=== PATIENT | female | born 1955 | race African-American/Black ===

== ENCOUNTER 2019-10-21 16:19 | Inpatient (IN) | payer OTHER ==
--- NOTE | 2019-10-21 16:47 | PDOC ---
History of Present Illness - General Chief Complaint: Weakness Stated Complaint: POSS STROKE Time Seen by Provider: 10/21/19 16:35 - History of Present Illness Initial Comments: HPI: 64yo F with PMH of HTN, anxiety, depression sent by her primary care physician for evaluation of dysarthria and abnormal mouth sensation. Patient reports facial numbness and slurred speech for about one minute on Friday. These symptoms went away on their own. Her family member believed that she was having a "mini stroke." On both Friday and Friday patient felt tingling around her mouth for about two minutes. Starting on Friday (yesterday), patient has had intermittent mouth "heaviness." As this sensation has persisted, she decided to come to the ED for further evaluation. Last known normal was 7am this morning. Denies recent fall or syncope. No history of stroke. Denies fevers, chills, chest pain, or shortness of breath. PCP: Dr. Bess ROS: Constitutional: no fever, no chills HEENT: no throat pain, no dysphagia Cardiovascular: no chest pain, no palpitations Respiratory: no cough, no shortness of breath Gastrointestinal: no abdominal pain, no nausea Genitourinary: no dysuria, no hematuria Musculoskeletal: no myalgia, no arthralgia Skin: no rash, no itching Neurologic: +dysarthria, +weakness Psych: no agitation, no anxiety PE: General: Awake, alert, and fully oriented, in no acute distress Head: No signs of trauma Eyes: EOMI, sclera anicteric ENT: Moist mucus membranes Neck: Normal ROM, supple Lungs: Lungs clear, Normal breath sounds Cardio: Regular rhythm, S1 and S2 present Abdomen: Soft, nontender. No guarding, no rebound, no masses Extremities: Normal range of motion, Distal pulses present SKIN: Warm, Dry, normal turgor Neurologic: Cranial nerves II through XII grossly intact. Dysarthric. Please see NIHSS ED Course/MDM: DDX including but not limited to CVA, ACS, anemia, metabolic derangement Labs, EKG CT Head NIHSS Not a TPA candidate as she is outside the window 10/21/19 16:47 CBC WBC 7.9 K/mm3 (4.0-10.0) 10/21/19 17:35 RBC 4.32 M/mm3 (3.60-5.2) 10/21/19 17:35 Hgb 12.6 GM/dL (10.7-15.3) 10/21/19 17:35 Hct 37.9 % (32.4-45.2) 10/21/19 17:35 MCV 87.8 fl (80-96) 10/21/19 17:35 MCH 29.1 pg (25.7-33.7) 10/21/19 17:35 MCHC 33.1 g/dl (32.0-36.0) 10/21/19 17:35 RDW 14.4 % (11.6-15.6) 10/21/19 17:35 Plt Count 413 K/MM3 (134-434) 10/21/19 17:35 MPV 8.3 fl (7.5-11.1) 10/21/19 17:35 Absolute Neuts (auto) 3.8 K/mm3 (1.5-8.0) 10/21/19 17:35 Neutrophils % 48.1 % (42.8-82.8) 10/21/19 17:35 Lymphocytes % 41.9 % (8-40) H 10/21/19 17:35 Monocytes % 6.8 % (3.8-10.2) 10/21/19 17:35 Eosinophils % 2.6 % (0-4.5) 10/21/19 17:35 Basophils % 0.6 % (0-2.0) 10/21/19 17:35 Nucleated RBC % 0 % (0-0) 10/21/19 17:35 No leukocytosis CMP Sodium 139 mmol/L (136-145) 10/21/19 17:35 Potassium 3.8 mmol/L (3.5-5.1) 10/21/19 17:35 Chloride 106 mmol/L (98-107) 10/21/19 17:35 Carbon Dioxide 27 mmol/L (21-32) 10/21/19 17:35 Anion Gap 6 MMOL/L (8-16) L 10/21/19 17:35 BUN 10.4 mg/dL (7-18) 10/21/19 17:35 Creatinine 0.9 mg/dL (0.55-1.3) 10/21/19 17:35 Est GFR (CKD-EPI)AfAm 79.42 10/21/19 17:35 Est GFR (CKD-EPI)NonAf 68.53 10/21/19 17:35 POC Glucometer 115 UNITS (80-120) 10/21/19 16:27 Random Glucose 95 mg/dL (74-106) 10/21/19 17:35 Calcium 9.4 mg/dL (8.5-10.1) 10/21/19 17:35 Total Bilirubin 0.2 mg/dL (0.2-1) 10/21/19 17:35 AST 10 U/L (15-37) L 10/21/19 17:35 ALT 15 U/L (13-61) 10/21/19 17:35 Alkaline Phosphatase 94 U/L (45-117) 10/21/19 17:35 Creatine Kinase 59 U/L (26-192) 10/21/19 17:35 Troponin I < 0.02 ng/ml (0.00-0.05) 10/21/19 17:35 Total Protein 8.1 g/dl (6.4-8.2) 10/21/19 17:35 Albumin 3.5 g/dl (3.4-5.0) 10/21/19 17:35 Triglycerides 127 mg/dL (0-150) 10/21/19 17:35 Cholesterol 221 mg/dL (50-200) H 10/21/19 17:35 Total LDL Cholesterol 138 mg/dL (5-100) H 10/21/19 17:35 HDL Cholesterol 50 mg/dL (40-60) 10/21/19 17:35 Electrolytes unremarkable Cr normal Tpn undetectable Cholesterol and LDL high EKG: rate 84, QTc 482, sinus Pending CT report 10/21/19 18:46 CT Head as read by radiology: " EXAM#: TYPE/EXAM: RESULT: [id number] CT/HEAD CT WITHOUT CONTRAST Cranial CT without contrast Clinical information: dysarthria, concern for stroke Multiplanar imaging was performed. Intravenous contrast was not administered. No intracranial hemorrhage is seen. There is no extra-axial fluid collection. No discrete infarct is identified within the limitations of CT. Atherosclerotic calcification is seen along the intracranial left vertebral artery. There is no obvious mass lesion on noncontrast imaging. The ventricles and cisterns appear unremarkable. No calvarial defect is noted. Impression: No CT evidence of acute intracranial pathology. Intracranial findings described on an MRI exam of 2018 cannot be definitely appreciated on CT. Please refer to the MRI report. Reported By: Sanchez Mckeon MD 10/21/19 185 " 10/21/19 19:[address] Torrez ASA recommended Patient to be admitted 10/21/19 19:28 CXR as read by radiology: " EXAM#: TYPE/EXAM: RESULT: [id number] RAD/CHEST X-RAY PORTABLE* Chest : Weakness. Single view of the chest reveals a large heart, normal aortic abnormal ludivina and clear well aerated lung menezes. There is a granuloma at the right base measuring 4.6 mm in greatest diameter. The angles are sharp. The bones and soft tissues are intact Impression : Large heart. No acute chest pathology. Right lower lung granuloma. Reported By : Jeffry Melton MD 10/21/192000 " Awaiting callback from hospitalist team 10/21/19 20:03 Dr. Membreno evaluated the patient. Symptoms may be attributed to tardive dyskinesia as patient is on several psych medications. Patient to still get MRI 10/21/19 20:[address] Refugio Broderick who accepted patient for admission under Dr. Vizcaino 10/21/19 20:16 tPA Exclusion checklist 3-4.5h - Time Elapsed Date last known well: 10/21/19 Time last known well: 07:00 Elaspsed time: Day(s) and 14 Hour(s) and 45 Minutes - Thrombolytic Therapy Candidate Is patient eligible for thrombolytic therapy: No - Ineligibility reason(s) Reasons No tPA given: Outside of window - delayed arrival NIH Stroke Scale - Last Known Well Date/Time & Onset Date Last Known Well: 10/21/19 Time Last Known Well: 07:00 - Initial Evaluation Level of consciousness: Alert Ask patient the month and their age: Answers both correctly Ask patient to open & close eyes; make fist and let go: Obeys both correctly Best gaze (horizontal eye movement): Normal Visual field testing: No visual field loss Facial paresis (Show teeth/raise eyebrows/close eyes tight): Normal symmetrical movement Motor Function: Left Arm: Normal Motor Function: Right Arm: Normal (extends arm 90 (or 45) degrees for 10 seconds without drift Motor Function: Left Leg: Normal (extends leg 30 degrees for 5 seconds without drift) Motor Function: Right Leg: Normal (extends leg 30 degrees for 5 seconds without drift) Limb Ataxia: No ataxia Sensory(Use pinprick test arms,legs,trunk,face/side to side): Normal Best language (Describe picture, name items, read sentences): No Aphasia Dysarthria (read several words): Mild to moderate slurring of words Extinction and Inattention: No abnormality - Total Score NIH Stroke Scale Score: 1 Past History - Past Medical History Allergies/Adverse Reactions: Allergies Allergy/AdvReac Type Severity Reaction Status Date / Time No Known Allergies Allergy Verified 10/21/19 16:33 Home Medications: Ambulatory Orders Amlodipine Besylate [Norvasc -] 10 mg PO DAILY 05/08/18 Aripiprazole [Abilify -] 20 mg PO DAILY 05/08/18 Bupropion HCl [Bupropion Xl] 150 mg PO DAILY 05/08/18 traZODone HCL [Trazodone HCl] 100 mg PO HS 05/08/18 Aripiprazole 20 mg PO DAILY 10/21/19 Benztropine Mesylate 2 mg PO DAILY 10/21/19 Mirtazapine [Remeron -] 45 mg PO HS 10/21/19 Anemia: No Asthma: No Cancer: No CVA: No COPD: Yes CHF: No Diabetes: No GI Disorders: No Disorders: No HTN: Yes (on meds) Hypercholesterolemia: No Liver Disease: No Seizures: No Thyroid Disease: No (nodule biopsy negative 2015) - Surgical History Abdominal Surgery: No Appendectomy: No Cardiac Surgery: No Cholecystectomy: No Lung Surgery: No Neurologic Surgery: No Orthopedic Surgery: No - Psycho Social/Smoking Cessation Hx Smoking History: Never smoked Have you smoked in the past 12 months: No Information on smoking cessation initiated: No Hx Alcohol Use: No Drug/Substance Use Hx: No Substance Use Type: Alcohol Hx Substance Use Treatment: Yes (rehab) *Physical Exam - Vital Signs Last Vital Signs Temp Pulse Resp BP Pulse Ox 97.2 F L 91 H 16 140/90 100 10/21/19 16:20 10/21/19 16:20 10/21/19 16:20 10/21/19 16:20 10/21/19 16:20 ED Treatment Course - LABORATORY CBC & Chemistry Diagram: 10/21/19 17:35 10/21/19 17:35 - ADDITIONAL ORDERS Additional order review: Laboratory Results 10/21/19 16:27 POC Glucometer 115 10/21/19 16:27 POC Glucometer 115 Discharge - Discharge Information Problems reviewed: Yes Clinical Impression/Diagnosis: Dysarthria Condition: Guarded - Admission Yes - Follow up/Referral - Patient Discharge Instructions - Post Discharge Activity
[2019-10-21] MEDS ORDERED: SODIUM CHLORIDE 1,000 ML IV SCH ×2 (17:30→22:00)
[2019-10-21 18:02] LABS: BASO % 0.6 % (0-2.0); EOS % 2.6 % (0-4.5); HEMATOCRIT 37.9 % (32.4-45.2); HEMOGLOBIN 12.6 GM/dL (10.7-15.3); LYMPH % 41.9 % (8-40); MCH 29.1 pg (25.7-33.7); MCHC 33.1 g/dl (32.0-36.0); MEAN CELL VOLUME 87.8 fl (80-96); MEAN PLT VOLUME 8.3 fl (7.5-11.1); MONO % 6.8 % (3.8-10.2); NEUT % 48.1 % (42.8-82.8); PLATELET COUNT 413 K/MM3 (134-434); RBC 4.32 M/mm3 (3.60-5.2); RDW 14.4 % (11.6-15.6); WHITE BLOOD COUNT 7.9 K/mm3 (4.0-10.0)
[2019-10-21 18:15] LABS: INR 1.01 (0.83-1.09); PROTHROMBIN TIME (PATIENT) 11.9 SEC (9.7-13.0)
[2019-10-21 18:18] LABS: PH,URINE 6.5 (5.0-8.0); URINE APPEARANCE CLEAR; URINE BILIRUBIN NEGATIVE (NEGATIVE); URINE COLOR YELLOW; URINE GLUCOSE (UA) NEGATIVE (NEGATIVE); URINE KETONE NEGATIVE (NEGATIVE); URINE LEUK ESTERASE NEGATIVE (NEGATIVE); URINE NITRITE NEGATIVE (NEGATIVE); URINE PROTEIN NEGATIVE (NEGATIVE)
[2019-10-21 18:35] LABS: ALBUMIN 3.5 g/dl (3.4-5.0); ALK PHOS 94 U/L (45-117); ANION GAP 6 MMOL/L (8-16); BILIRUBIN,TOTAL 0.2 mg/dL (0.2-1); BLOOD UREA NITROGEN 10.4 mg/dL (7-18); CALCIUM 9.4 mg/dL (8.5-10.1); CHLORIDE 106 mmol/L (98-107); CHOLESTEROL 221 mg/dL (50-200); CO2 27 mmol/L (21-32); CREATININE 0.9 mg/dL (0.55-1.3); GLUCOSE,RANDOM 95 mg/dL (74-106); HDL CHOLESTEROL 50 mg/dL (40-60); LDL CHOLESTEROL (ONLY SJRH) 138 mg/dL (5-100); POTASSIUM 3.8 mmol/L (3.5-5.1); SGOT/AST 10 U/L (15-37); SGPT/ALT 15 U/L (13-61); SODIUM 139 mmol/L (136-145); TOT PROT 8.1 g/dl (6.4-8.2); TRIGLYCERIDES 127 mg/dL (0-150)
--- NOTE | 2019-10-21 18:55 | PDOC ---
Attending Attestation - Resident Resident Name: Yvette Bland - ED Attending Attestation I have performed the following: I have examined & evaluated the patient, The case was reviewed & discussed with the resident, I agree w/resident's findings & plan, Exceptions are as noted - HPI HPI: 10/21/19 18:53 64 years old with stuttering symptoms of tongue tingling dysarthria questionable facial droop last week Currently asymptomatic - Physicial Exam PE: 10/21/19 18:53 Vitals: Triage Vital signs reviewed General Appearance: No acute distress, well nourished well developed, Head: Atraumatic, Eyes: Pupils equal reactive round, extraocular movement intact Neuro: AOX3; cranial Nerves 2-12 grossly intact, strength intact to all extremities, sensation intact to all extremities, gait normal Psych: Normal mood, normal affect okay - Medical Decision Making 10/21/19 18:54 Stuttering symptoms currently asymptomatic NIHSS score [address] with no acute bleed Interpreted by me Full dose aspirin given We will admit to medicine for further management.
[2019-10-21] MEDS ORDERED: ASPIRIN 81 MG CHEWABLE TABLETS PO ONE (19:30)
--- NOTE | 2019-10-21 19:58 | CON.NEURO ---
Consult Consult Specialty:: Haseeb Referred by:: ER - History of Present Illness History of Present Illness: 64 years old woman with PMH CAD OA HTN Prior TIA came in with possible another CVA Patient with heavy tongue an difficulty expressing herslef No headache Had MRI in Apr 2019 by me - History Source History Provided By: Patient Limitations to Obtaining History: No Limitations - Alcohol/Substance Use Hx Alcohol Use: No - Smoking History Smoking history: Never smoked Have you smoked in the past 12 months: No Home Medications - Allergies Allergies/Adverse Reactions: Allergies Allergy/AdvReac Type Severity Reaction Status Date / Time No Known Allergies Allergy Verified 10/21/19 16:33 - Home Medications Home Medications: Ambulatory Orders Amlodipine Besylate [Norvasc -] 10 mg PO DAILY 05/08/18 Aripiprazole [Abilify -] 20 mg PO DAILY 05/08/18 Bupropion HCl [Bupropion Xl] 150 mg PO DAILY 05/08/18 traZODone HCL [Trazodone HCl] 100 mg PO HS 05/08/18 Aripiprazole 20 mg PO DAILY 10/21/19 Benztropine Mesylate 2 mg PO DAILY 10/21/19 Mirtazapine [Remeron -] 45 mg PO HS 10/21/19 Family Medical History Family History: Unremarkable Review of Systems - Review of Systems Constitutional: reports: No Symptoms Eyes: reports: No Symptoms HENT: reports: No Symptoms Neurological: reports: Headache, Incoordination, Numbness, Parasthesia Physical Exam-Neuro Vital Signs: Vital Signs Temperature 97.2 F L 10/21/19 16:20 Pulse Rate 91 H 10/21/19 16:20 Respiratory Rate 16 10/21/19 16:20 Blood Pressure 140/90 10/21/19 16:20 O2 Sat by Pulse Oximetry (%) 100 10/21/19 16:20 Constitutional: Yes: Well Nourished Neck: Yes: WNL Cardiovascular: Yes: WNL Labs: CBC, BMP 10/21/19 17:35 10/21/19 17:35 INR, PTT INR 1.01 (0.83-1.09) 10/21/19 17:35 - Neuro Exam Level Of Consciousness: Yes: Oriented to Person, Oriented to Place, Oriented to Time Eyes: Yes: PERRLA Speech: WNL Dominant Hand: Right Cranial Nerves II-XII Intact: Yes Gag: Present DTR's: 1+ Left Bicep, 1+ Right Bicep, 1+ Left Tricep, 1+ Right Tricep, 1+ Left Brachioradialis, 1+ Right Brachioradialis, 1+ Left Achilles, 1+ Right Achilles Response to light touch: Normal Response to pain prick: Normal Response to temperature: Normal Motor Strength: 3/5: Left Arm, Right Arm, Left Leg, Right Leg Gait: Deferred NIH Stroke Scale - Last Known Well Date/Time & Onset Date Last Known Well: 10/18/19 - Initial Evaluation Level of consciousness: Alert Ask patient the month and their age: Answers both correctly Ask patient to open & close eyes; make fist and let go: Obeys both correctly Best gaze (horizontal eye movement): Normal Visual field testing: No visual field loss Facial paresis (Show teeth/raise eyebrows/close eyes tight): Normal symmetrical movement Motor Function: Left Arm: Normal Motor Function: Right Arm: Normal (extends arm 90 (or 45) degrees for 10 seconds without drift Motor Function: Left Leg: Normal (extends leg 30 degrees for 5 seconds without drift) Motor Function: Right Leg: Normal (extends leg 30 degrees for 5 seconds without drift) Limb Ataxia: No ataxia Sensory(Use pinprick test arms,legs,trunk,face/side to side): Normal Best language (Describe picture, name items, read sentences): No Aphasia Dysarthria (read several words): Normal articulation Extinction and Inattention: No abnormality - Total Score NIH Stroke Scale Score: 0 Imaging - Results Cat Scan: Image Reviewed MRI: Image Reviewed Problem List - Problems (1) Dysarthria Code(s): R47.1 - DYSARTHRIA AND ANARTHRIA Assessment/Plan Doubt any CVA relate devent Anxiety Speech and swallow assess Baby ASA Notes from my office MRI brain with no Daryl Ashleigh Membreno MD Neurology
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
[2019-10-21] MEDS: traZODone HCL 100 MG TABLET (FP) PO SCH (23:16)
[2019-10-21] MEDS: HEPARIN NA (PORCINE) 5,000 UNITS/ML 1ML VIAL SQ SCH (23:16)
[2019-10-21] MEDS: MIRTAZAPINE 30 MG TABLET (FP) PO SCH (23:16)
--- NOTE | 2019-10-22 02:22 | PN ---
Teaching Attending Note Name of Resident: Tanmay Perez ATTENDING PHYSICIAN STATEMENT I saw and evaluated the patient. I reviewed the resident's note and discussed the case with the resident. I agree with the resident's findings and plan as documented. SUBJECTIVE: 64-year-old woman with hypertension, anxiety, depression sent by her PCP for evaluation of dysarthria. Reports facial numbness and slurred speech for about 1 minute on this past Friday however symptoms resolved shortly afterward. Patient has had intermittent mouth heaviness. Denied significant headaches no recent fall or syncope. Dr. Aguilera of neurology has evaluated patient already. OBJECTIVE: Last Vital Signs Temp Pulse Resp BP Pulse Ox 98.3 F 85 18 125/85 97 10/22/19 02:00 10/22/19 02:00 10/22/19 02:10/22/19 02:10/21/19 20:38 GENERAL: Well developed, well nourished. Awake and alert. No acute distress. HEENT: Normocephalic, atraumatic. PERRLA, EOMI. No conjunctival pallor. Sclera are non- icteric. Moist mucous membranes. Oropharynx is clear. NECK: Supple. Full ROM. No JVD. Carotid pulses 2+ and symmetric, without bruits. No thyromegaly. No lymphadenopathy. CARDIOVASCULAR: Regular rate and rhythm. No murmurs, rubs, or gallops. Distal pulses are 2+ and symmetric. PULMONARY: No evidence of respiratory distress. Lungs clear to auscultation bilaterally. No wheezing, rales or rhonchi. ABDOMINAL: Soft. Non-tender. Non-distended. No rebound or guarding. No organomegaly. Normoactive bowel sounds. MUSCULOSKELETAL Normal range of motion at all joints. No bony deformities or tenderness. No CVA tenderness. EXTREMITIES: No cyanosis. No clubbing. No edema. No calf tenderness. Neuro - dysarthria SKIN: Warm and dry. Normal capillary refill. No rashes. No jaundice. PSYCHIATRIC: Cooperative. Good eye contact. Appropriate mood and affect. Abnormal Lab Results 10/21/19 10/21/19 17:35 17:35 Lymphocytes % 41.9 H Anion Gap 6 L AST 10 L Cholesterol 221 H Total LDL Cholesterol 138 H Imaging studies reviewed ASSESSMENT AND PLAN: 64-year-old woman with dysarthria concerning for TIA, CVA should be ruled out. Admit to telemetry Carotid Doppler, transthoracic echo Bedrest and fall precautions, PT evaluation N.p.o. Speech and swallow eval Statin Aspirin Neurology follow-up Brain MRI #Psych issues Continue with home dose medications Remeron, Abilify, trazodone, bupropion, benztropine Psych eval for possible psych medication adjustments as she is noted to be on multiple medications #DVT prophylaxisheparin subcutaneously
[2019-10-22 03:15] VITALS: BMI 30.2
[2019-10-22] MEDS: HEPARIN NA (PORCINE) 5,000 UNITS/ML 1ML VIAL SQ SCH ×3 (05:09→21:29)
[2019-10-22 07:23] LABS: BASO % 1.3 % (0-2.0); EOS % 4.6 % (0-4.5); HEMATOCRIT 39.3 % (32.4-45.2); HEMOGLOBIN 12.9 GM/dL (10.7-15.3); LYMPH % 44.3 % (8-40); MCH 28.6 pg (25.7-33.7); MCHC 32.7 g/dl (32.0-36.0); MEAN CELL VOLUME 87.5 fl (80-96); MEAN PLT VOLUME 8.4 fl (7.5-11.1); MONO % 7.3 % (3.8-10.2); NEUT % 42.5 % (42.8-82.8); PLATELET COUNT 404 K/MM3 (134-434); RDW 14.8 % (11.6-15.6); WHITE BLOOD COUNT 6.2 K/mm3 (4.0-10.0)
[2019-10-22 07:56] LABS: ALBUMIN 3.4 g/dl (3.4-5.0); BILIRUBIN,TOTAL 0.4 mg/dL (0.2-1); BLOOD UREA NITROGEN 8.6 mg/dL (7-18); CALCIUM 8.9 mg/dL (8.5-10.1); CREATININE 0.7 mg/dL (0.55-1.3); MAGNESIUM 2.3 mg/dL (1.8-2.4); PHOSPHOROUS 4.2 mg/dL (2.5-4.9); POTASSIUM 3.8 mmol/L (3.5-5.1); TOT PROT 7.6 g/dl (6.4-8.2)
[2019-10-22] MEDS ORDERED: ARIPiprazole 20 MG TABLET PO SCH (10:00)
[2019-10-22] MEDS: amLODIPine BESYLATE 10 MG TABLET (FP) PO SCH (10:32)
[2019-10-22] MEDS: ARIPiprazole 20 MG TABLET PO SCH (10:32)
--- NOTE | 2019-10-22 10:47 | CONSULT ---
Admitting History and Physical - Past Medical History ...: No - Smoking History Smoking history: Never smoked Have you smoked in the past 12 months: No Aproximately how many cigarettes per day: 5 - Alcohol/Substance Use Hx Alcohol Use: No History - Admission Reason For Visit: DYSARTHRIA - Hearing Hearing: Normal Speech Evaluation - Communication Primary Language: KOREAN Communication: Yes: Within Normal Limits, Dysarthria (mild) Oral Expression Ability: Yes: No Impairment - Speech Production Dysarthria: Yes: Flaccid Apraxia: No Able to Make Needs Known: Yes: WNL Intelligibility: Yes: WNL - Speech Characteristics Voice Loudness: Normal Voice Pitch: Yes: Normal Voice Phonatory-based Quality: Yes: Normal Speech Pattern: Normal Nasal Resonance: Normal Articulation: Yes: Precise Dysfluency: Yes: Tonic Rate of Speech: Intact Voice Comment: Vocal quality is functional for the environment with speech parameters WNL - Language/Auditory Comprehension Follows: Yes: 1 Stage Simple Commands (WFL), 2 Stage Simple Commands (WFL) Observation: Able to respond to yes/no queries: Yes, Yes/No Confusion: No, Comprehends Conversational Speech: Yes, Benefits from Slow Speech: No, Benefits from Repetiton: No, Benefits from Increased Volume of Speech: No - Language/Verbal Expression Able to Respond to Simple Queries: Yes: WNL Able to Communicate Wants and Needs: Yes: WNL Functional Communication Status: Yes: WNL Aware of Errors: Yes Attempts to Correct Errors: Yes Use of Gestures: No Written Expression: not examined Oral Expression: WFL Reading Comprehension: not examined Calculations: not examined - Memory/Perception hairspring inspector Memory: Yes: WNL Short Term Memory: Yes: WNL - Swallow Evaluation/Bedside Assessment Current Nutritional Intake: Regular (sodium controlled), Soft, Thin Liquids Oral Secretions: Yes: WFL Tracheostomy Present: No Patient on Ventilator: No Dentition: Yes: Dental Appliance Upper, Dental Appliance Lower, Dental Fit Adequate Facial Symmetry at Rest: Symmetrical Facial Symmetry on Retraction: Symmetrical Facial Movement: Controlled Sensation: Normal Facial Comment: Oral and facial features are within functional limits for speech and swallo Jaw Position: Closed at Rest Against Resistance Opening: Normal Against Resistance Closing: Normal Pucker Lips: Normal Smile: Normal Lips, Comment: within functional limits for speech and swallowing purposes. Lingual Movement: Normal Lingual Speed of Movement: Normal Lingual Movement Strgth Against Opposition: Normal Lingual Movement Characteristics: Normal Lingual Comment: within functional limits for speech and swallowing purposes. Soft Palate Description: Normal Color Hard Palate Description: Normal Color Gag Reflex: Strong Velopharyngeal Movement: Normal Laryngeal Elevation: WFL Laryngeal Movement: Able to Palpate Needs Assistance: No Rate of Intake: WFL Bolus Size: WFL Labial Seal: WFL Chewing: WFL Oral Prep Time: WFL A-P Transit: WFL Pocketing: None Timing of Swallow: WFL Coughing/Throat Clear: No Change in Voice: No Other Findings/Remarks: 64 yo female seen at bedside for swallow eval to r/o dysphagia and functional speech. Pt presents as A&Ox3, verbal and cooperative. CC: episodic facial numbness with slurred speech (resolving). PMX includes: CAD, HTN, TIA, schizophrenia, depression and right lung granuloma. Speech is mildly slurred secondary to dysarthria but pt reports that it is "much better than yesterday." Pt given PO trials of pureed, regular cut to bite sized pieces with total assistance revealed, adequate bolus formation and A P transport with a timely pharyngeal swallow (1-2 second average). No change in voicing or respiration after the swallow. Thin liquid trials via cup and straw were unremarkable for dysphagia and / or aspiration at this time. Recommendations - Speech Evaluation, Impression/Plan Impression: The oral and pharyngeal swallow is adequate for po intake of regular solids (sodium controlled) and thin liquids. Labial containment, mastication, bolus transport, and initiation of swallow were WNL. No coughing or changes in voicing to suggest penetration / aspiration at bedside at this time. Speech is resolving with improving facial numbness. Language is WNL at this time. Tactical/Mobile Watch Officer Goals: Tolerate the least restrictive solid and liquid consistencies without s/s of penetration / aspiration. Improve speech intelligibility. Short Term Goals: Improve speech intelligibility. Recommended Frequency for Therapy: Follow Up PRN - Dysphagia Impressions/Plan Swallowing Skills: WFL Dysphagia Impressions: Minimal Impairment *Silent aspiration: cannot be R/O at bedside Dysphagia Treatment Plan: Small Bites, Safe Rate, OOB for meals, OOB for 1 h. after meals Dysphagia Evaluation Summary: Continue po intake of NA controlled regular solids with thin liquids at tolerated. Observe standard aspiration precautions. Provide oral care before and after meals including dental appliance tp and bottom. Medication can be given whole with water. Results given verbally to charge attendant and PCP via chart. EQUINE DENTIST to follow up for diet and improving speech as needed. Recommendations: Neuro Consult (to r/o dysfunction secondary to episodic numbness) - Recommendations Diet Consistency: Regular Medication Administration: Whole with water Liquids: Thin Liquids
--- NOTE | 2019-10-22 11:02 | ECHO ---
Name: JUVENTINO SUN Exam:Adult Echocardiogram Study Date: 10/22/2019 08:39 AM Age: 64 yrs Reason For Study: questionable TIA Height: 67 in Weight: 190 lb BSA: 2.0 m2 MMode/2D Measurements & Calculations IVSd: 1.0 cm Ao root diam: 3.0 cm LVIDd: 4.2 cm LA dimension: 3.4 cm LVIDs: 2.9 cm LVPWd: 1.3 cm LVPWs: 1.7 cm EDV(Teich): 77.4 ml ESV(Teich): 31.2 ml LVOT diam: 2.1 cm LVLd ap4: 7.9 cm EDV(MOD-sp4): 90.7 ml LVLs ap4: 7.0 cm ESV(MOD-sp4): 40.0 ml SV(MOD-sp4): 50.7 ml TAPSE: 2.2 cm RV S Alonzo: 12.6 cm/sec Doppler Measurements & Calculations MV E max alonzo: 54.3 cm/sec Ao V2 max: 119.8 cm/sec MV A max alozno: 92.2 cm/sec Ao max P.8 mmHg MV E/A: 0.59 MICHELLE(V,D): 3.0 cm2 MV dec time: 0.13 sec LV V1 max P.5 mmHg TR max alonzo: 233.7 cm/sec LV V1 max: 106.2 cm/sec TR max P.8 mmHg PA V2 max: 78.0 cm/sec Med Peak E' Alonzo: 5.0 cm/sec PA max P.4 mmHg Med E/e': 10.9 Lat Peak E' Alonzo: 5.9 cm/sec Lat E/e': 9.2 Left Ventricle Left ventricular systolic function is borderline reduced. Ejection Fraction = 50%. The transmitral sp ectral Doppler flow pattern is suggestive of impaired LV relaxation. Septal motion is consistent with conduc tion abnormality. Right Ventricle The right ventricle is normal in size and function. Atria The left atrium is mildly dilated. Right atrial size is normal. The interatrial septum is not well se en. Mitral Valve The mitral valve is normal in structure and function. There is no mitral valve stenosis. There is mil d mitral regurgitation. Tricuspid Valve The tricuspid valve is normal in structure and function. There is mild tricuspid regurgitation. Aortic Valve The aortic valve opens well. No hemodynamically significant valvular aortic stenosis. No aortic regur gitation is present. Pulmonic Valve The pulmonic valve is not well seen, but is grossly normal. There is no pulmonic valvular stenosis. Great Vessels The aortic root is normal size. Pericardium/Pleura There is no pericardial effusion. Interpretation Summary Septal motion is consistent with conduction abnormality. Left ventricular systolic function is borderline reduced. Ejection Fraction = 50%. The transmitral spectral Doppler flow pattern is suggestive of impaired LV relaxation. The left atrium is mildly dilated. There is mild mitral regurgitation. There is mild tricuspid regurgitation. There is no pericardial effusion. MD Mathews *Олег 10/22/2019 11:01 AM
[2019-10-22] MEDS: ASPIRIN 81 MG CHEWABLE TABLETS PO SCH (11:40)
--- NOTE | 2019-10-22 12:57 | CON.PULM ---
Consult Consult Specialty:: PULM/CCM Referred by:: Hospitalist Reason for Consultation:: abnormal CXR - History of Present Illness History of Present Illness: 64 F, 1/2 PPD long time smoker, CAD, HTN, TIA, schizophrenia, and depression. Admitted via the ER due to numbness and tingling in her lips, slurred speech, and blurred vision since Friday morning. Has not been taking her meds except for Trazodone for her insomnia. CXR: 4.[address] Chest: most recent was 2017: multiple non-calcified subcentimeter nodules, largest being 5mm in the DYAN. No hemoptysis or night sweats. There is no history that would be consistent with OSAS. No travel history or sick contacts. - History Source History Provided By: Patient Limitations to Obtaining History: No Limitations - Past Medical History Pulmonary: Yes: Bronchitis. No: Asthma, Cancer, COPD, O2 Dependent, Pneumonia, Previously Intubated, Pulmonary Embolus, Pulmonary Fibrosis, Sleep Apnea ...: No - Alcohol/Substance Use Hx Alcohol Use: No - Smoking History Smoking history: Never smoked Have you smoked in the past 12 months: No Aproximately how many cigarettes per day: 5 Home Medications - Allergies Allergies/Adverse Reactions: Allergies Allergy/AdvReac Type Severity Reaction Status Date / Time No Known Allergies Allergy Verified 10/21/19 16:33 - Home Medications Home Medications: Ambulatory Orders Amlodipine Besylate [Norvasc -] 10 mg PO DAILY 05/08/18 Aripiprazole [Abilify -] 20 mg PO DAILY 05/08/18 Bupropion HCl [Bupropion Xl] 150 mg PO DAILY 05/08/18 traZODone HCL [Trazodone HCl] 100 mg PO HS 05/08/18 Aripiprazole 20 mg PO DAILY 10/21/19 Benztropine Mesylate 2 mg PO DAILY 10/21/19 Mirtazapine [Remeron -] 45 mg PO HS 10/21/19 Review of Systems - Review of Systems Constitutional: reports: Malaise. denies: Chills, Fever, Night Sweats Eyes: reports: No Symptoms HENT: reports: No Symptoms Neck: reports: No Symptoms Cardiovascular: denies: Chest Pain, Edema, Palpitations, Shortness of Breath Respiratory: reports: Cough. denies: Hemoptysis, Snoring, SOB, SOB on Exertion , Wheezing Gastrointestinal: reports: No Symptoms Genitourinary: reports: No Symptoms Breasts: reports: No Symptoms Reported Musculoskeletal: reports: No Symptoms Integumentary: reports: No Symptoms Neurological: reports: Change in Speech, Numbness, Parasthesia. denies: Seizure Endocrine: reports: No Symptoms Hematology/Lymphatic: reports: No Symptoms Psychiatric: reports: No Symptoms Physical Exam Vital Sings: Vital Signs Temperature 98.1 F 10/22/19 10:00 Pulse Rate 83 10/22/19 10:00 Respiratory Rate 18 10/22/19 10:00 Blood Pressure 144/95 10/22/19 10:00 O2 Sat by Pulse Oximetry (%) 97 10/21/19 21:54 Constitutional: Yes: No Distress, Calm Eyes: Yes: Conjunctiva Clear, EOM Intact HENT: Yes: Atraumatic, Normocephalic Neck: Yes: Supple, Trachea Midline Cardiovascular: Yes: Regular Rate and Rhythm Respiratory: Yes: CTA Bilaterally, Diminished. No: Accessory Muscle Use, Rales , Rhonchi, SOB, SOB on Exertion, Stridor, Tachypnea, Wheezes ...Inspection: Yes: WNL ...Clubbing: No Gastrointestinal: Yes: Normal Bowel Sounds, Soft Renal/: Yes: WNL Musculoskeletal: Yes: WNL Extremities: Yes: WNL Edema: No Peripheral Pulses WNL: Yes Integumentary: Yes: WNL Neurological: Yes: WNL, Alert, Oriented ...Motor Strength: WNL Psychiatric: Yes: WNL, Alert, Oriented Labs: CBC, BMP 10/22/19 06:20 10/22/19 06:20 Imaging - Results Chest X-ray: Report Reviewed, Image Reviewed Cat Scan: Report Reviewed, Image Reviewed Problem List - Problems (1) Lung nodule < 6cm on CT Code(s): R91.1 - SOLITARY PULMONARY NODULE (2) Dysarthria Code(s): R47.1 - DYSARTHRIA AND ANARTHRIA (3) Bipolar disease, chronic Code(s): F31.9 - BIPOLAR DISORDER, UNSPECIFIED (4) Chronic radicular low back pain Code(s): M54.16 - RADICULOPATHY, LUMBAR REGION; G89.29 - OTHER CHRONIC PAIN (5) Granulomatous lung disease Code(s): J84.10 - PULMONARY FIBROSIS, UNSPECIFIED (6) HTN (hypertension) Code(s): I10 - ESSENTIAL (PRIMARY) HYPERTENSION (7) Nicotine dependence Code(s): F17.200 - NICOTINE DEPENDENCE, UNSPECIFIED, UNCOMPLICATED Assessment/Plan PLAN: CT chest No smoking counseled O2 as needed No need for systemic steroids Neuro work up ongoing VTE prophylaxis Will follow Thank you. Dr Hein
--- NOTE | 2019-10-22 15:40 | EKG ---
Test Reason : Blood Pressure : / mmHG Vent. Rate : 084 BPM Atrial Rate : 084 BPM P-R Int : 128 ms QRS Dur : 082 ms QT Int : 408 ms P-R-T Axes : 059 038 015 degrees QTc Int : 482 ms POOR DATA QUALITY, INTERPRETATION MAY BE ADVERSELY AFFECTED SINUS RHYTHM WITH PREMATURE SUPRAVENTRICULAR COMPLEXES POSSIBLE LEFT ATRIAL ENLARGEMENT NONSPECIFIC T WAVE ABNORMALITY PROLONGED QT ABNORMAL ECG NO PREVIOUS ECGS AVAILABLE Confirmed by MARY ERAZO MD ([id number]) on 10/22/2019 3:39:37 PM Referred By: Confirmed By:MARY ERAZO MD
--- NOTE | 2019-10-22 17:09 | PN ---
Physical Exam: SUBJECTIVE: Patient seen and examined at bedside. She was admitted overnight for possible CVA. This AM she states that she is well and her presenting c/o mouth/lip numbness has resolved. She does endorse some change in her voice. Otherwise she has no HIGGINS, vision change, numbness/tingling. She has never experienced this before; she denies h/o TIA. The sensation symptoms have been on /off but the speech change/slurring has been constant since Friday10/17/2019. ROS neg. She denies recent wt loss, night sweats, fevers/chills. She has not traveled, had sick contacts, used recreational drugs, tried new foods/ supplements/herbs. OBJECTIVE: Vital Signs Temp Pulse Resp BP Pulse Ox 98.4 F 86 20 127/86 98 10/22/19 14:00 10/22/19 14:00 10/22/19 14:00 10/22/19 14:10/22/19 09:00 GENERAL: AOx3, in no acute distress, pleasant/polite HEAD: NCAT EYES: SHITAL, EOMI, conjunctiva clear. ENT: Ears normal, nares patent, oropharynx clear without exudates. Moist mucous membranes. NECK: Normal range of motion, supple without lymphadenopathy, JVD, or masses. LUNGS: CTAB. No wheezes, and no crackles. No accessory muscle use. HEART: RRR s1 s2 ABDOMEN: Obese, soft, BS present in all 4 quadrants, non-distended, no JVD, MUSCULOSKELETAL: No bony deformities or tenderness. No CVA tenderness. UPPER EXTREMITIES: 2+ pulses, warm, well-perfused. No cyanosis. No clubbing. No peripheral edema. LOWER EXTREMITIES: 2+ pulses, warm, well-perfused. No calf tenderness. No peripheral edema. NEUROLOGICAL: Cranial nerve 7 failure, LEFT sided facial droop. All other CN intact. Unclear if speech is pt's idiolect or genuine slurring. Gait intact with appropriate strike and swing phase and appropriate circumambulation. FTN intact. No dysdiadochokinesia. Strength 5/5 thorughout. Hand pit crew support worker 5/5. PAtellar and brachial reflex 2+ BL. Babinski NEG. PSYCHIATRIC: Cooperative. Good eye contact. Appropriate mood and affect. SKIN: Warm, dry, normal turgor, no rashes or lesions noted, normal capillary refill. Laboratory Results - last 24 hr 10/21/19 10/21/19 10/21/19 16:27 17:35 17:35 WBC 7.9 RBC 4.32 Hgb 12.6 Hct 37.9 MCV 87.8 MCH 29.1 MCHC 33.1 RDW 14.4 Plt Count 413 MPV 8.3 Absolute Neuts (auto) 3.8 Neutrophils % 48.1 Lymphocytes % 41.9 H Monocytes % 6.8 Eosinophils % 2.6 Basophils % 0.6 Nucleated RBC % 0 PT with INR 11.90 INR 1.01 PTT (Actin FS) 33.0 Sodium Potassium Chloride Carbon Dioxide Anion Gap BUN Creatinine Est GFR (CKD-EPI)AfAm Est GFR (CKD-EPI)NonAf POC Glucometer 115 Random Glucose Calcium Phosphorus Magnesium Total Bilirubin AST ALT Alkaline Phosphatase Creatine Kinase Troponin I Total Protein Albumin Triglycerides Cholesterol Total LDL Cholesterol HDL Cholesterol Urine Color Urine Appearance Urine pH Ur Specific [place] Urine Protein Urine Glucose (UA) Urine Ketones Urine Blood Urine Nitrite Urine Bilirubin Urine Urobilinogen Ur Leukocyte Esterase Blood Type Antibody Screen 10/21/19 10/21/19 10/21/19 17:35 17:35 18:00 WBC RBC Hgb Hct MCV MCH MCHC RDW Plt Count MPV Absolute Neuts (auto) Neutrophils % Lymphocytes % Monocytes % Eosinophils % Basophils % Nucleated RBC % PT with INR INR PTT (Actin FS) Sodium 139 Potassium 3.8 Chloride 106 Carbon Dioxide 27 Anion Gap 6 L BUN 10.4 Creatinine 0.9 Est GFR (CKD-EPI)AfAm 79.42 Est GFR (CKD-EPI)NonAf 68.53 POC Glucometer Random Glucose 95 Calcium 9.4 Phosphorus Magnesium Total Bilirubin 0.2 AST 10 L ALT 15 Alkaline Phosphatase 94 Creatine Kinase 59 Troponin I < 0.02 Total Protein 8.1 Albumin 3.5 Triglycerides 127 Cholesterol 221 H Total LDL Cholesterol 138 H HDL Cholesterol 50 Urine Color Yellow Urine Appearance Clear Urine pH 6.5 Ur Specific [place] 1.023 Urine Protein Negative Urine Glucose (UA) Negative Urine Ketones Negative Urine Blood Negative Urine Nitrite Negative Urine Bilirubin Negative Urine Urobilinogen 1.0 Ur Leukocyte Esterase Negative Blood Type A POSITIVE Antibody Screen Negative 10/22/19 10/22/19 06:20 06:20 WBC 6.2 RBC 4.50 Hgb 12.9 Hct 39.3 MCV 87.5 MCH 28.6 MCHC 32.7 RDW 14.8 Plt Count 404 MPV 8.4 Absolute Neuts (auto) 2.6 Neutrophils % 42.5 L Lymphocytes % 44.3 H Monocytes % 7.3 Eosinophils % 4.6 H Basophils % 1.3 Nucleated RBC % 0 PT with INR INR PTT (Actin FS) Sodium 140 Potassium 3.8 Chloride 108 H Carbon Dioxide 26 Anion Gap 6 L BUN 8.6 Creatinine 0.7 Est GFR (CKD-EPI)AfAm 107.62 Est GFR (CKD-EPI)NonAf 92.86 POC Glucometer Random Glucose 96 Calcium 8.9 Phosphorus 4.2 Magnesium 2.3 Total Bilirubin 0.4 AST 10 L ALT 12 L Alkaline Phosphatase 91 Creatine Kinase Troponin I Total Protein 7.6 Albumin 3.4 Triglycerides Cholesterol Total LDL Cholesterol HDL Cholesterol Urine Color Urine Appearance Urine pH Ur Specific [place] Urine Protein Urine Glucose (UA) Urine Ketones Urine Blood Urine Nitrite Urine Bilirubin Urine Urobilinogen Ur Leukocyte Esterase Blood Type Antibody Screen Active Medications Amlodipine Besylate (Norvasc -) 10 mg PO DAILY [facility] Last Admin: 10/22/19 10:32 Dose: 10 mg Aripiprazole (Abilify) 20 mg PO DAILY [facility] Last Admin: 10/22/19 10:32 Dose: 20 mg Aspirin (Asa -) 81 mg PO DAILY [facility] Last Admin: 10/22/19 11:40 Dose: 81 mg Atorvastatin Calcium (Lipitor -) 80 mg PO [facility] Bupropion HCl (Wellbutrin Xl -) 150 mg PO DAILY [facility] Last Admin: 10/22/19 10:32 Dose: 150 mg Heparin Sodium (Porcine) (Heparin -) 5,000 unit SQ TID [facility] Last Admin: 10/22/19 13:53 Dose: 5,000 unit Mirtazapine (Remeron -) 45 mg PO [facility] Last Admin: 10/21/19 23:16 Dose: 45 mg Trazodone HCl (Desyrel -) 100 mg PO [facility] Last Admin: 10/21/19 23:16 Dose: 100 mg ASSESSMENT/PLAN: 64 y/o female PMH HTN, CAD, TIA, schizophrenia, and major depression c/o 5 days of on/off juan-oral numbness/tingling and constant speech slurring, admitted for care of possible CVA. # Acute CVA - Symptoms currently abating - MRI: acute/subacute lacunar infarct LEFT frontal high convexity - S/p full dose asa in ED, cont with 81 mg po qd - Atorvastatin 80 nmg po qd - Fall/sz precautions - HOB elevated - Speech/swallow - POSITIVE carotid dopler; BL vessel occlusion. This possible contributed to current presentation # RIGHT lung lesion - CXR finding - Must compare to previous imaging - Asymptomatic - Consult pulm. # Major depression - Bupropion 150 mg po qd - Mirtazepine 45 mg po hs # Schizophrenia - Aripiprazole 20 mg po qd # HTN - Currently normotensive - No home regimen per med rec. - Chart notes pt previously on Norvasc 10 mg po qf - Prolonged qtc # HLD - Atorvastatin 80 mg po qd # F/E/N - PO - Cont. to monitor - NPO till bedside speech/swallow # DVT prophylaxis - Heparin SQ # Disposition - Med/surg Robbi Power MD Visit type - Emergency Visit Emergency Visit: No - New Patient This patient is new to me today: No - Critical Care Critical Care patient: No ATTENDING PHYSICIAN STATEMENT I saw and evaluated the patient. I reviewed the resident's note and discussed the case with the resident. I agree with the resident's findings and plan as documented. SUBJECTIVE: OBJECTIVE: ASSESSMENT AND PLAN:
--- NOTE | 2019-10-22 17:37 | PN ---
Teaching Attending Note Name of Resident: Robbi Power ATTENDING PHYSICIAN STATEMENT I saw and evaluated the patient. I reviewed the resident's note and discussed the case with the resident. I agree with the resident's findings and plan as documented. SUBJECTIVE: seen at 10 am No fever or chills. she feels her speech is normal. daughter at bedside concurs. No weakness, numbness or tingling at time of evaluation . No dysphagea. OBJECTIVE: NAD. awake ,alert , and cooperative CV: RRR. Lungs: CTAB Ext: No edema or erythema on upper or lower extremities. Neuro: EOMI, round equal pupils, reactive to light . tongue and uvula at mid line . nl facial sensation . no facial droop. strength 5/5 in upper and lower extremities proximally and distally. sensation to light touch is nL. nose to finger NL. Nl speech ASSESSMENT AND PLAN: 64 y/o lady with h/o hypertension, anxiety,schizophrenia , depression , prior TIA who presented with facial numbness and slurred speech . 1- Dysarthria and facial numbness: MRI with acute L frontal infarct. lesions in periventricular area. - speech is normal and numbness has resolved - cont statin - asa - tele to r/o A fib - US with decreased flow in vertebral arteries and internal carotids. will get CTA to clarify this finding - need to contact neuro to compare MRI to the one done as out pt - periventricular lesions are to be investigated by neuro . ? MS - speech eval noted. 2- nicotine dependence. cont Wellbutrin . counseled 3- granuloma in lung seen on xray . -CT of chest ordered - f/u with pulm 4- schizophrenia and depression : - cont abilify, trazodone, benztropin and remeron DVT Px : heparin PT
[2019-10-22] MEDS: BENZTROPINE MESYLATE 2 MG TABLET PO SCH (21:28)
[2019-10-22] MEDS: MIRTAZAPINE 30 MG TABLET (FP) PO SCH (21:29)
[2019-10-22] MEDS: traZODone HCL 100 MG TABLET (FP) PO SCH (21:29)
[2019-10-22] MEDS ORDERED: ATORVASTATIN CA 20 MG TABLET (FP) PO SCH ×2 (22:00)
[2019-10-23] MEDS: HEPARIN NA (PORCINE) 5,000 UNITS/ML 1ML VIAL SQ SCH ×2 (05:44→13:49)
[2019-10-23 06:05] VITALS: PULSE 80
[2019-10-23 06:33] LABS: HEMATOCRIT 38.2 % (32.4-45.2); HEMOGLOBIN 12.7 GM/dL (10.7-15.3); MCH 29.1 pg (25.7-33.7); MCHC 33.3 g/dl (32.0-36.0); MEAN CELL VOLUME 87.4 fl (80-96); MEAN PLT VOLUME 8.3 fl (7.5-11.1); PLATELET COUNT 404 K/MM3 (134-434); RBC 4.37 M/mm3 (3.60-5.2); RDW 14.3 % (11.6-15.6); WHITE BLOOD COUNT 6.5 K/mm3 (4.0-10.0)
[2019-10-23 07:12] LABS: ALBUMIN 3.3 g/dl (3.4-5.0); BILIRUBIN,TOTAL 0.3 mg/dL (0.2-1); BLOOD UREA NITROGEN 9.4 mg/dL (7-18); CALCIUM 9.3 mg/dL (8.5-10.1); CREATININE 0.8 mg/dL (0.55-1.3); POTASSIUM 4.3 mmol/L (3.5-5.1); TOT PROT 7.8 g/dl (6.4-8.2)
[2019-10-23] MEDS: amLODIPine BESYLATE 10 MG TABLET (FP) PO SCH (09:29)
[2019-10-23] MEDS: ASPIRIN 81 MG CHEWABLE TABLETS PO SCH (09:29)
[2019-10-23] MEDS: BENZTROPINE MESYLATE 2 MG TABLET PO SCH (09:29)
[2019-10-23] MEDS: ARIPiprazole 20 MG TABLET PO SCH (09:30)
--- NOTE | 2019-10-23 11:20 | PN ---
Progress Note (short form) - Note Progress Note: PULMONARY VSS/AFEBRILE DYSARTHRIA CONTINUES Constitutional: Yes: No Distress, Calm Eyes: Yes: Conjunctiva Clear, EOM Intact HENT: Yes: Atraumatic, Normocephalic Neck: Yes: Supple, Trachea Midline Cardiovascular: Yes: Regular Rate and Rhythm Respiratory: Yes: CTA Bilaterally, Diminished. No: Accessory Muscle Use, Rales , Rhonchi, SOB, SOB on Exertion, Stridor, Tachypnea, Wheezes ...Inspection: Yes: WNL ...Clubbing: No Gastrointestinal: Yes: Normal Bowel Sounds, Soft Renal/: Yes: WNL Musculoskeletal: Yes: WNL Extremities: Yes: WNL Edema: No Peripheral Pulses WNL: Yes Integumentary: Yes: WNL Neurological: Yes: WNL, Alert, Oriented ...Motor Strength: WNL Psychiatric: Yes: WNL, Alert, Oriented Labs: Noted CT Chest reviewed Problem List - Problems (1) Lung nodule < 6cm on CT Code(s): R91.1 - SOLITARY PULMONARY NODULE (2) Dysarthria Code(s): R47.1 - DYSARTHRIA AND ANARTHRIA (3) Bipolar disease, chronic Code(s): F31.9 - BIPOLAR DISORDER, UNSPECIFIED (4) Chronic radicular low back pain Code(s): M54.16 - RADICULOPATHY, LUMBAR REGION; G89.29 - OTHER CHRONIC PAIN (5) Granulomatous lung disease Code(s): J84.10 - PULMONARY FIBROSIS, UNSPECIFIED (6) HTN (hypertension) Code(s): I10 - ESSENTIAL (PRIMARY) HYPERTENSION (7) Nicotine dependence Code(s): F17.200 - NICOTINE DEPENDENCE, UNSPECIFIED, UNCOMPLICATED Assessment/Plan PLAN: CT chest to be repeated in one year No smoking counseled O2 as needed No need for systemic steroids Neuro work up ongoing VTE prophylaxis Please call DAMIAN HUBER MD
--- NOTE | 2019-10-23 14:52 | PN ---
Teaching Attending Note Name of Resident: Iain Tobias ATTENDING PHYSICIAN STATEMENT I saw and evaluated the patient. I reviewed the resident's note and discussed the case with the resident. I agree with the resident's findings and plan as documented. SUBJECTIVE: no fever or chills. No weakness, numbness or tingling . No N.V . she feels her speech is normal . no HIGGINS , or change in vision OBJECTIVE: NAD. awake ,alert , and cooperative CV: RRR. Lungs: CTAB Ext: No edema or erythema on upper or lower extremities. Neuro: EOMI, round equal pupils, reactive to light . tongue and uvula at mid line . nl facial sensation . no facial droop. strength 5/5 in upper and lower extremities proximally and distally. sensation to light touch is nL. nl gait ASSESSMENT AND PLAN: 64 y/o lady with h/o hypertension, anxiety,schizophrenia , depression , prior TIA who presented with facial numbness and slurred speech . 1- Dysarthria and facial numbness: MRI with acute L frontal infarct. lesions in periventricular area. - Nl neuro exam. - cont statin - asa - tele with no a fib. will need prolonged cardiac monitoring after dc - CAT of neck with patent internal carotids and external vertebral arteries. - Dr. tobias spoke to dr Evangelina avila regarding other findings of MRI,patietn is to be evaluated before dc today 2- Nicotine dependence. cont Wellbutrin . counseled 3- Granuloma in lung seen on xray. -CT of chest reviewed. lungs nodules and granulomas. f.u CT in 1 year - f/u with pulm 4- schizophrenia and depression : - cont abilify, trazodone, benztropin and remeron DVT Px : heparin SQ plan for dc today pending neuro eval . did well with PT
--- NOTE | 2019-10-23 17:43 | PN ---
Progress Note, Physician History of Present Illness: events noted Chart reviewed Seen on the floor Alert awake oriented Follows command No headache Facial movements are better - Current Medication List Current Medications: Active Medications Amlodipine Besylate (Norvasc -) 10 mg PO DAILY [facility] Last Admin: 10/23/19 09:29 Dose: 10 mg Aripiprazole (Abilify) 20 mg PO DAILY [facility] Last Admin: 10/23/19 09:30 Dose: 20 mg Aspirin (Asa -) 81 mg PO DAILY [facility] Last Admin: 10/23/19 09:29 Dose: 81 mg Atorvastatin Calcium (Lipitor -) 80 mg PO [facility] Last Admin: 10/22/19 21:29 Dose: 80 mg Benztropine Mesylate (Cogentin -) 2 mg PO BID [facility] Last Admin: 10/23/19 09:29 Dose: 2 mg Bupropion HCl (Wellbutrin Xl -) 150 mg PO DAILY [facility] Last Admin: 10/23/19 09:29 Dose: 150 mg Heparin Sodium (Porcine) (Heparin -) 5,000 unit SQ TID [facility] Last Admin: 10/23/19 13:49 Dose: 5,000 unit Mirtazapine (Remeron -) 45 mg PO [facility] Last Admin: 10/22/19 21:29 Dose: 45 mg Trazodone HCl (Desyrel -) 100 mg PO [facility] Last Admin: 10/22/19 21:29 Dose: 100 mg - Objective Vital Signs: Vital Signs Temperature 98 F 10/23/19 13:49 Pulse Rate 80 10/23/19 13:49 Respiratory Rate 20 10/23/19 13:49 Blood Pressure 136/87 10/23/19 13:49 O2 Sat by Pulse Oximetry (%) 97 10/23/19 09:00 Constitutional: Yes: Well Nourished Eyes: Yes: WNL HENT: Yes: WNL Neurological: Yes: Alert, Oriented, Babinski negative ...Motor Strength: WNL Labs: CBC, BMP 10/23/19 06:05 10/23/19 06:05 INR, PTT INR 1.01 (0.83-1.09) 10/21/19 17:35 Problem List - Problems (1) Dysarthria Code(s): R47.1 - DYSARTHRIA AND ANARTHRIA Assessment/Plan the results of the MRI with the acute punctate CVA has nothing to do with the speech dysarthria Tardive dyskinesia Stroke prevention 1. Aspirin. 2. Statin. 3. Neurologically okay to go home to follow with neurology in 2 weeks
--- NOTE | 2019-10-23 18:03 | DS ---
Physical Exam: SUBJECTIVE: Patient seen and examined feeling better , numbness tingling resolved and slurry speech resolved seen by neurologist and clear to go home and follow up with Dr Membreno in 2 weeks OBJECTIVE: Vital Signs Period Temp Pulse Resp BP Sys/Ching Pulse Ox Last 24 Hr 97.9 F-98.3 F 79-82 20-20 132-144/65-88 97-97 PHYSICAL EXAM General : Awake alert in NAD Head: NC AT neck: supple Heart : RRR Lungs CTA B/L Abdomen: soft, ND , NT normal BS Skin warm dry Neuro: no focal deficit , sensation intact , CN II - XII grossly intact , strength 5/5 upper and lower ext LABS Laboratory Results - last 24 hr 10/23/19 10/23/19 10/23/19 06:00 06:00 06:05 WBC 6.5 RBC 4.37 Hgb 12.7 Hct 38.2 MCV 87.4 MCH 29.1 MCHC 33.3 RDW 14.3 Plt Count 404 MPV 8.3 Sodium Potassium Chloride Carbon Dioxide Anion Gap BUN Creatinine Est GFR (CKD-EPI)AfAm Est GFR (CKD-EPI)NonAf Random Glucose Hemoglobin A1c % 5.8 Calcium Total Bilirubin AST ALT Alkaline Phosphatase Total Protein Albumin Vitamin B12 407 Serum Folate 9 10/23/19 06:05 WBC RBC Hgb Hct MCV MCH MCHC RDW Plt Count MPV Sodium 137 Potassium 4.3 Chloride 106 Carbon Dioxide 26 Anion Gap 5 L BUN 9.4 Creatinine 0.8 Est GFR (CKD-EPI)AfAm 91.58 Est GFR (CKD-EPI)NonAf 79.01 Random Glucose 108 H Hemoglobin A1c % Calcium 9.3 Total Bilirubin 0.3 AST 12 L ALT 13 Alkaline Phosphatase 92 Total Protein 7.8 Albumin 3.3 L Vitamin B12 Serum Folate CBC, BMP 10/23/19 06:05 10/23/19 06:[address] Impression: No definite interval change is seen in comparison to an exam of 07/2017. Small stable bilateral pulmonary nodules. Correlation with one year follow-up CT is suggested to document continued stability. Several small bilateral calcified pulmonary granulomas are noted as well as several calcified right hilar lymph nodes. Neck CTA Impression: No carotid artery stenosis is identified. Brain MRI IMPRESSION: T2 hyperintense foci in the periventricular white matter and a T1 hypointense lesion in September of the corpus callosum are again seen without gross interval change. Findings of are suspicious for multiple sclerosis. Correlate clinically. Acute/subacute lacunar infarct in the left frontal high convexity. Follow-up is needed No mass lesion or acute intracranial hemorrhage are identified. A preliminary report was forwarded by the [facility] service, [employer]. HOSPITAL COURSE: Date of Admission:10/21/19 Date of Discharge: 10/23/19 64 y/o lady with h/o hypertension, anxiety,schizophrenia , depression , prior TIA who presented with facial numbness and slurred speech .symptoms has resolved MRI with acute L frontal infarct. lesions in periventricular area. with normal neuro exam. can cont statin 80 mg HS , ASA 81 mg daily , norvasc 10 mg daily monitored on tele with no AFIB or arrythmia , will need cardicak work up after dc CAT of neck with patent internal carotids and external vertebral arteries. seen by neurologist and cklear her to go home with 2 weks follow up pt was found to have Granuloma in lung seen on xray. with CT of chest reviewed as above . lungs nodules and granulomas. repeat CT in 1 year , follow up with Dr Ramsay pulmonary as out pt. In term of schizophrenia and depression cont abilify, trazodone, benztropin and remeron. seen bt PT and cleared to go home , dr valadez spoke with ehr daughter and updated her about the medication and the plan. Minutes to complete discharge: 45 Discharge Summary Problems reviewed: Yes Reason For Visit: DYSARTHRIA Current Active Problems Stroke (Acute) Bipolar disorder with moderate depression (Chronic) Chronic radicular low back pain (Chronic) Granulomatous lung disease (Chronic) HTN (hypertension) (Chronic) Lung nodule < 6cm on CT (Chronic) Nicotine dependence (Chronic) Condition: Improved - Instructions Diet, Activity, Other Instructions: you presented to the hospital due to slurry speech and numbness in your face and your symptoms has resolved . they were thought to be due to stroke you were found to have some nodule and some granulomas and lung nodules on your lung you need to follow up with pulmonary Dr Ramsay and repeat CT scan within one year You were found to have some changes on MRI brain in deep parts. This needs to be followed by Dr. Membreno Please continue your home medication as before admission please take aspirin 81 mg daily and Atorvaststin 80 mg daily at bed time. this can cause muscle weakness and aches and liver enzyms elevation. radha marquez follow with your primary doctor regarding this and notify MD with any weakness or aches please take your blood pressure medicine as prescribed and monitor you blood pressure daily. take log to your primary in 1 week follow up with your primary within one week If you develop fever , chills, and numbness tingling or weakness please call 911 or return to emergency room we referred you to a heart doctor , Dr. Denney, as you will need a prolonged heart monitoring to make sure you don't have any arrhythmias causing your stroke . Do not smoke. please stop Referrals: Chelly Bess NP [Primary Care Provider] - 1 Week Reid Denney MD [Staff Physician] - 1 Week Ashleigh Membreno MD [Staff Physician] - 1 Week Onel Ramsay MD, MD [Staff Physician] - 1 Month Disposition: VNS/HOME HEALTH CARE - Home Medications Comprehensive Discharge Medication List: Ambulatory Orders Aripiprazole [Abilify -] 20 mg PO DAILY 05/08/18 Bupropion HCl [Bupropion Xl] 150 mg PO DAILY 05/08/18 traZODone HCL [Trazodone HCl] 100 mg PO HS 05/08/18 Benztropine Mesylate 2 mg PO BID 10/21/19 Mirtazapine [Remeron -] 45 mg PO HS 10/21/19 Amlodipine Besylate [Norvasc -] 10 mg PO DAILY #30 tablet 10/23/19 Aspirin [ASA -] 81 mg PO DAILY #30 tab.chew 10/23/19 Atorvastatin Calcium 80 mg PO HS #30 tablet 10/23/19 This patient is new to me today: Yes Date on this admission: 10/23/19 Emergency Visit: Yes ED Registration Date: 10/21/19 Care time: The patient presented to the Emergency Department on the above date and was hospitalized for further evaluation of their emergent condition. Critical Care patient: No - Discharge Referral Referred to [facility] No ATTENDING PHYSICIAN STATEMENT I saw and evaluated the patient. I reviewed the resident's note and discussed the case with the resident. I agree with the resident's findings and plan as documented. SUBJECTIVE: OBJECTIVE: ASSESSMENT AND PLAN:
[2019-10-23 18:09] VITALS: BP 137/86; TEMP 97.4
== END 2019-10-23 18:57 | disposition home health service (06) | DRG 65 ==
LOC: JER 16:19 → JERBED 19:31 → J4S 22:38
PROVIDERS: ADMIT Internal Medicine; ATTEND Internal Medicine
DX: I63.9 Cerebral infarction, unspecified (principal); F31.89 Other bipolar disorder; I10 Essential (primary) hypertension; I25.10 Atherosclerotic heart disease of native coronary artery without angina pectoris; F20.9 Schizophrenia, unspecified; R47.1 Dysarthria and anarthria; F17.210 Nicotine dependence, cigarettes, uncomplicated; R91.1 Solitary pulmonary nodule; E78.00 Pure hypercholesterolemia, unspecified; J84.10 Pulmonary fibrosis, unspecified; G24.01 Drug induced subacute dyskinesia; F41.8 Other specified anxiety disorders; R20.0 Anesthesia of skin; R47.81 Slurred speech
CPT/HCPCS: 36415; 70450-TC; 70498-TC; 70551-TC; 71045-TC-FY; 71260-TC; 80053; 80061; 81003; 82550; 82607; 82746; 82962; 83036; 83721; 83735; 84100; 84484; 85025; 85027; 85610; 85730; 86850; 86900; 86901; 93005; 93010; 93306-TC; 93880-TC; 97116-GP; 97161-GP; 99285-25; J1644; J7030

== ENCOUNTER 2023-02-11 04:56 | Day surgery (SDC) | payer OTHER ==
[2023-02-11 12:17] VITALS: BMI 30.5
[2023-02-11 12:49] VITALS: RESP 18; TEMP 97.7
[2023-02-11 13:30] VITALS: BP 141/90; PULSE 82
== END 2023-02-11 13:35 | disposition home or self-care (01) ==
LOC: JASU-ENDO 04:56
PROVIDERS: ATTEND Student in an Organized Health Care Education/Training Program
PROC: 0DB78ZX Excision of Stomach, Pylorus, Via Natural or Artificial Opening Endoscopic, Diagnostic (ICD-10-PCS; 2023-02-11)
PROC: 0DB68ZX Excision of Stomach, Via Natural or Artificial Opening Endoscopic, Diagnostic (ICD-10-PCS; 2023-02-11)
PROC: 0DB28ZX Excision of Middle Esophagus, Via Natural or Artificial Opening Endoscopic, Diagnostic (ICD-10-PCS; 2023-02-11)
PROC: 0DB98ZX Excision of Duodenum, Via Natural or Artificial Opening Endoscopic, Diagnostic (ICD-10-PCS; principal; 2023-02-11 15:30)
DX: K20.90 Esophagitis, unspecified without bleeding (principal); K29.80 Duodenitis without bleeding; K29.70 Gastritis, unspecified, without bleeding; B96.81 Helicobacter pylori [H. pylori] as the cause of diseases classified elsewhere; I10 Essential (primary) hypertension
CPT/HCPCS: 88305-TC; 88342-TC

== ENCOUNTER 2023-03-19 22:35 | Observation (INO) | payer OTHER ==
[2023-03-20 02:47] LABS: BASO % 2.2 % (0-2.0); EOS % 4.3 % (0-4.5); HEMATOCRIT 39.2 % (32.4-45.2); HEMOGLOBIN 12.6 GM/dL (10.7-15.3); LYMPH % 37.3 % (8-40); MCH 27.6 pg (25.7-33.7); MEAN CELL VOLUME 86.2 fl (80-96); MONO % 6.7 % (3.8-10.2); NEUT % 49.5 % (42.8-82.8); PLATELET COUNT 434 10^3/uL (134-434); RBC 4.55 M/mm3 (3.60-5.2); RDW 15.5 % (11.6-15.6); WHITE BLOOD COUNT 8.5 K/mm3 (4.0-10.0)
[2023-03-20 02:55] LABS: INR 1.06 (0.83-1.09); PROTHROMBIN TIME (PATIENT) 12.3 SEC (9.7-13.0)
[2023-03-20 03:03] LABS: POTASSIUM 3.9 mmol/L (3.5-5.1)
[2023-03-20 03:06] LABS: BLOOD UREA NITROGEN 15.1 mg/dL (7-18); CALCIUM 9.6 mg/dL (8.5-10.1)
[2023-03-20 03:07] LABS: ALBUMIN 3.6 g/dl (3.4-5.0); MAGNESIUM 2.1 mg/dL (1.8-2.4)
[2023-03-20 03:09] LABS: CREATININE 0.8 mg/dL (0.55-1.3)
[2023-03-20 03:11] LABS: BILIRUBIN,TOTAL 0.1 mg/dL (0.2-1); TOT PROT 7.8 g/dl (6.4-8.2)
[2023-03-20] MEDS ORDERED: ACETAMINOPHEN 325 MG TABLET (FP) ONE (09:47)
[2023-03-20] MEDS ORDERED: LIDOCAINE 5% TOPICAL PATCH ONE (09:47)
[2023-03-20] MEDS ORDERED: amLODIPine BESYLATE 10 MG TABLET (FP) ONE (09:47)
[2023-03-20] MEDS ORDERED: ASPIRIN COATED 81 MG TABLET.EC ONE (09:47)
[2023-03-20] MEDS: LIDOCAINE 5% TOPICAL PATCH TP SCH (09:55)
[2023-03-20] MEDS: ACETAMINOPHEN 325 MG TABLET (FP) PO PRN (09:55)
[2023-03-20] MEDS: ASPIRIN COATED 81 MG TABLET.EC PO SCH (09:55)
[2023-03-20] MEDS: amLODIPine BESYLATE 10 MG TABLET (FP) PO SCH (09:55)
[2023-03-20] MEDS ORDERED: CYCLOBENZAPRINE HCL 10 MG TABLET (FP) PO PRN (11:51)
[2023-03-20] MEDS ORDERED: MIRTAZAPINE 30 MG TABLET PO SCH (22:00)
[2023-03-20] MEDS ORDERED: MIRTAZAPINE 15 MG TABLET (FP) ONE (22:15)
[2023-03-20] MEDS ORDERED: ATORVASTATIN CA 80 MG TABLET (FP) ONE (22:15)
[2023-03-20] MEDS: LIDOCAINE PATCH REMOVAL MC SCH (22:26)
[2023-03-20] MEDS: ATORVASTATIN CA 80 MG TABLET (FP) PO SCH (22:26)
[2023-03-20] MEDS: MIRTAZAPINE 30 MG, MIRTAZAPINE 15 MG PO SCH (22:27)
[2023-03-20 23:35] VITALS: BMI 32.1
[2023-03-20] MEDS: traZODone HCL 100 MG TABLET (FP) PO SCH (23:55)
[2023-03-21] MEDS: amLODIPine BESYLATE 10 MG TABLET (FP) PO SCH (09:25)
[2023-03-21] MEDS: ASPIRIN COATED 81 MG TABLET.EC PO SCH (09:25)
[2023-03-21] MEDS: LIDOCAINE 5% TOPICAL PATCH TP SCH (09:25)
[2023-03-21] MEDS: FLUoxetine HCL 10 MG CAPSULE PO SCH (09:26)
[2023-03-21] MEDS: traZODone HCL 100 MG TABLET (FP) PO SCH (22:04)
[2023-03-21] MEDS: LIDOCAINE PATCH REMOVAL MC SCH (22:04)
[2023-03-21] MEDS: ATORVASTATIN CA 80 MG TABLET (FP) PO SCH (22:04)
[2023-03-21] MEDS: MIRTAZAPINE 30 MG, MIRTAZAPINE 15 MG PO SCH (22:04)
[2023-03-22 06:42] LABS: HEMOGLOBIN 13.1 GM/dL (10.7-15.3); MCHC 31.9 g/dl (32.0-36.0); MEAN CELL VOLUME 87.7 fl (80-96); MEAN PLT VOLUME 8.5 fl (7.5-11.1); PLATELET COUNT 434 10^3/uL (134-434); RBC 4.67 M/mm3 (3.60-5.2); RDW 15.1 % (11.6-15.6); WHITE BLOOD COUNT 7.5 K/mm3 (4.0-10.0)
[2023-03-22 07:09] LABS: ALBUMIN 3.4 g/dl (3.4-5.0); BLOOD UREA NITROGEN 15.7 mg/dL (7-18); CALCIUM 9.9 mg/dL (8.5-10.1); MAGNESIUM 2.3 mg/dL (1.8-2.4)
[2023-03-22 07:12] LABS: PHOSPHOROUS 5.2 mg/dL (2.5-4.9)
[2023-03-22 07:14] LABS: BILIRUBIN,TOTAL 0.3 mg/dL (0.2-1); TOT PROT 7.7 g/dl (6.4-8.2)
[2023-03-22] MEDS: ASPIRIN COATED 81 MG TABLET.EC PO SCH (09:15)
[2023-03-22] MEDS: ENOXAPARIN NA (PORCINE) 40 MG/0.4 ML DISP.SYRIN SQ SCH (09:15)
[2023-03-22] MEDS: LOSARTAN POTASSIUM 50 MG TABLET PO SCH (09:15)
[2023-03-22] MEDS: CLOPIDOGREL BISULFATE 75 MG TABLET (FP) PO SCH (09:15)
[2023-03-22] MEDS: FLUoxetine HCL 10 MG CAPSULE PO SCH (09:15)
[2023-03-22] MEDS: LIDOCAINE 5% TOPICAL PATCH TP SCH (09:19)
[2023-03-22] MEDS ORDERED: LIDOCAINE 5% TOPICAL PATCH TP ONE (14:10)
[2023-03-22] MEDS: ATORVASTATIN CA 40 MG TABLET (FP) PO SCH (21:01)
[2023-03-22] MEDS: traZODone HCL 100 MG TABLET (FP) PO SCH (21:01)
[2023-03-22] MEDS: MIRTAZAPINE 30 MG, MIRTAZAPINE 15 MG PO SCH (21:02)
[2023-03-22] MEDS: LIDOCAINE PATCH REMOVAL MC SCH (21:02)
[2023-03-22] MEDS ORDERED: LIDOCAINE PATCH REMOVAL MC SCH (22:00)
[2023-03-23 08:09] LABS: BLOOD UREA NITROGEN 26.1 mg/dL (7-18)
[2023-03-23 08:13] LABS: CREATININE 1.5 mg/dL (0.55-1.3)
[2023-03-23 08:41] LABS: CALCIUM 9.7 mg/dL (8.5-10.1)
[2023-03-23] MEDS: CLOPIDOGREL BISULFATE 75 MG TABLET (FP) PO SCH (09:22)
[2023-03-23] MEDS: LIDOCAINE 5% TOPICAL PATCH TP SCH (09:22)
[2023-03-23] MEDS: FLUoxetine HCL 10 MG CAPSULE PO SCH (09:22)
[2023-03-23] MEDS: ENOXAPARIN NA (PORCINE) 40 MG/0.4 ML DISP.SYRIN SQ SCH (09:22)
[2023-03-23] MEDS: ASPIRIN COATED 81 MG TABLET.EC PO SCH (09:22)
[2023-03-23] MEDS: LOSARTAN POTASSIUM 50 MG TABLET PO SCH (09:22)
[2023-03-23] MEDS: ACETAMINOPHEN 325 MG TABLET (FP) PO PRN ×2 (12:04→17:57)
[2023-03-23] MEDS ORDERED: LACTATED RINGERS SOLUTION 1,000 ML/1,000 ML INFUS.BAG IV SCH (12:45)
[2023-03-23] MEDS: ATORVASTATIN CA 40 MG TABLET (FP) PO SCH (21:24)
[2023-03-23] MEDS: MIRTAZAPINE 30 MG, MIRTAZAPINE 15 MG PO SCH (21:24)
[2023-03-23] MEDS: traZODone HCL 100 MG TABLET (FP) PO SCH (21:24)
[2023-03-23] MEDS: LIDOCAINE PATCH REMOVAL MC SCH (21:25)
[2023-03-24 07:42] LABS: HEMATOCRIT 37.6 % (32.4-45.2); HEMOGLOBIN 11.9 GM/dL (10.7-15.3); MCH 28.2 pg (25.7-33.7); MCHC 31.7 g/dl (32.0-36.0); MEAN CELL VOLUME 89.1 fl (80-96); MEAN PLT VOLUME 8.7 fl (7.5-11.1); PLATELET COUNT 405 10^3/uL (134-434); RBC 4.23 M/mm3 (3.60-5.2); RDW 15.6 % (11.6-15.6); WHITE BLOOD COUNT 7.6 K/mm3 (4.0-10.0)
[2023-03-24 08:02] LABS: POTASSIUM 4.2 mmol/L (3.5-5.1)
[2023-03-24 08:03] LABS: CALCIUM 9.1 mg/dL (8.5-10.1)
[2023-03-24 08:04] LABS: BLOOD UREA NITROGEN 21.8 mg/dL (7-18); MAGNESIUM 2.2 mg/dL (1.8-2.4)
[2023-03-24 08:07] LABS: CREATININE 1.1 mg/dL (0.55-1.3); PHOSPHOROUS 4.2 mg/dL (2.5-4.9)
[2023-03-24] MEDS: LIDOCAINE 5% TOPICAL PATCH TP SCH (10:30)
[2023-03-24] MEDS: LOSARTAN POTASSIUM 50 MG TABLET PO SCH (10:31)
[2023-03-24] MEDS: ASPIRIN COATED 81 MG TABLET.EC PO SCH (10:31)
[2023-03-24] MEDS: CLOPIDOGREL BISULFATE 75 MG TABLET (FP) PO SCH (10:31)
[2023-03-24] MEDS: ENOXAPARIN NA (PORCINE) 40 MG/0.4 ML DISP.SYRIN SQ SCH (10:31)
[2023-03-24] MEDS: FLUoxetine HCL 10 MG CAPSULE PO SCH (10:37)
[2023-03-24] MEDS: ACETAMINOPHEN 325 MG TABLET (FP) PO PRN ×2 (10:38→21:48)
[2023-03-24] MEDS: traZODone HCL 100 MG TABLET (FP) PO SCH (21:46)
[2023-03-24] MEDS: MIRTAZAPINE 30 MG, MIRTAZAPINE 15 MG PO SCH (21:46)
[2023-03-24] MEDS: ATORVASTATIN CA 40 MG TABLET (FP) PO SCH (21:46)
[2023-03-24] MEDS: LIDOCAINE PATCH REMOVAL MC SCH (21:54)
[2023-03-25 07:09] LABS: HEMATOCRIT 35.3 % (32.4-45.2); HEMOGLOBIN 11.6 GM/dL (10.7-15.3); MCH 28.5 pg (25.7-33.7); MCHC 32.8 g/dl (32.0-36.0); MEAN PLT VOLUME 8.1 fl (7.5-11.1); PLATELET COUNT 382 10^3/uL (134-434); RBC 4.06 M/mm3 (3.60-5.2); RDW 15.6 % (11.6-15.6); WHITE BLOOD COUNT 6.9 K/mm3 (4.0-10.0)
[2023-03-25 07:26] LABS: POTASSIUM 4.4 mmol/L (3.5-5.1)
[2023-03-25 07:33] LABS: BLOOD UREA NITROGEN 14.2 mg/dL (7-18); CALCIUM 9.1 mg/dL (8.5-10.1)
[2023-03-25 07:34] LABS: ALBUMIN 2.8 g/dl (3.4-5.0)
[2023-03-25 07:37] LABS: CREATININE 0.9 mg/dL (0.55-1.3)
[2023-03-25 07:38] LABS: BILIRUBIN,TOTAL 0.1 mg/dL (0.2-1); TOT PROT 6.6 g/dl (6.4-8.2)
[2023-03-25] MEDS: ACETAMINOPHEN 325 MG TABLET (FP) PO PRN ×2 (09:03→21:40)
[2023-03-25] MEDS: LIDOCAINE 5% TOPICAL PATCH TP SCH (09:04)
[2023-03-25] MEDS: CLOPIDOGREL BISULFATE 75 MG TABLET (FP) PO SCH (09:04)
[2023-03-25] MEDS: LOSARTAN POTASSIUM 50 MG TABLET PO SCH (09:04)
[2023-03-25] MEDS: ENOXAPARIN NA (PORCINE) 40 MG/0.4 ML DISP.SYRIN SQ SCH (09:04)
[2023-03-25] MEDS: ASPIRIN COATED 81 MG TABLET.EC PO SCH (09:04)
[2023-03-25] MEDS: FLUoxetine HCL 10 MG CAPSULE PO SCH (09:06)
[2023-03-25] MEDS ORDERED: CYCLOBENZAPRINE HCL 10 MG TABLET (FP) PO SCH ×2 (10:50→22:00)
[2023-03-25] MEDS: PANTOPRAZOLE 40 MG TABLET PO SCH (11:06)
[2023-03-25] MEDS ORDERED: MAGNESIUM 2GM/50ML STERILE WATER IVPB IVPB ONE (11:15)
[2023-03-25] MEDS ORDERED: CYCLOBENZAPRINE HCL 10 MG TABLET (FP) PO ONE (15:52)
[2023-03-25] MEDS: traZODone HCL 100 MG TABLET (FP) PO SCH (21:29)
[2023-03-25] MEDS: MIRTAZAPINE 15 MG TABLET (FP) PO SCH (21:29)
[2023-03-25] MEDS: CYCLOBENZAPRINE HCL 10 MG TABLET (FP) PO SCH (21:29)
[2023-03-25] MEDS: ATORVASTATIN CA 40 MG TABLET (FP) PO SCH (21:34)
[2023-03-25] MEDS: LIDOCAINE PATCH REMOVAL MC SCH (21:34)
[2023-03-26] MEDS: ACETAMINOPHEN 325 MG TABLET (FP) PO PRN ×3 (07:41→23:10)
[2023-03-26 08:03] LABS: HEMATOCRIT 36.5 % (32.4-45.2); HEMOGLOBIN 11.6 GM/dL (10.7-15.3); MCH 28.3 pg (25.7-33.7); MCHC 31.7 g/dl (32.0-36.0); MEAN CELL VOLUME 89.2 fl (80-96); MEAN PLT VOLUME 8.9 fl (7.5-11.1); PLATELET COUNT 353 10^3/uL (134-434); RDW 15.4 % (11.6-15.6); WHITE BLOOD COUNT 7.6 K/mm3 (4.0-10.0)
[2023-03-26 08:27] LABS: CHLORIDE 112 mmol/L (98-107); POTASSIUM 4.2 mmol/L (3.5-5.1); SODIUM 144 mmol/L (136-145)
[2023-03-26 08:30] LABS: ALBUMIN 2.8 g/dl (3.4-5.0); ANION GAP 5 MMOL/L (8-16); BLOOD UREA NITROGEN 13.6 mg/dL (7-18); CALCIUM 9.1 mg/dL (8.5-10.1); CO2 27 mmol/L (21-32); GLUCOSE,RANDOM 137 mg/dL (74-106); MAGNESIUM 2.4 mg/dL (1.8-2.4)
[2023-03-26 08:33] LABS: CREATININE 0.9 mg/dL (0.55-1.3); PHOSPHOROUS 3.7 mg/dL (2.5-4.9); SGOT/AST 34 U/L (15-37); SGPT/ALT 46 U/L (13-61)
[2023-03-26 08:35] LABS: BILIRUBIN,TOTAL < 0.1 mg/dL (0.2-1); TOT PROT 6.5 g/dl (6.4-8.2)
[2023-03-26 08:36] LABS: ALK PHOS 75 U/L (45-117)
[2023-03-26] MEDS: ENOXAPARIN NA (PORCINE) 40 MG/0.4 ML DISP.SYRIN SQ SCH (09:09)
[2023-03-26] MEDS: LIDOCAINE 5% TOPICAL PATCH TP SCH (09:09)
[2023-03-26] MEDS: ASPIRIN COATED 81 MG TABLET.EC PO SCH (09:09)
[2023-03-26] MEDS: CYCLOBENZAPRINE HCL 10 MG TABLET (FP) PO SCH ×2 (09:10→21:19)
[2023-03-26] MEDS: FLUoxetine HCL 10 MG CAPSULE PO SCH (09:10)
[2023-03-26] MEDS: CLOPIDOGREL BISULFATE 75 MG TABLET (FP) PO SCH (09:10)
[2023-03-26] MEDS: LOSARTAN POTASSIUM 50 MG TABLET PO SCH (09:10)
[2023-03-26] MEDS: PANTOPRAZOLE 40 MG TABLET PO SCH (09:10)
[2023-03-26] MEDS: MIRTAZAPINE 15 MG TABLET (FP) PO SCH (21:19)
[2023-03-26] MEDS: ATORVASTATIN CA 40 MG TABLET (FP) PO SCH (21:19)
[2023-03-26] MEDS: traZODone HCL 100 MG TABLET (FP) PO SCH (21:19)
[2023-03-26] MEDS: LIDOCAINE PATCH REMOVAL MC SCH (21:23)
[2023-03-27 06:08] VITALS: RESP 18
[2023-03-27] MEDS: ENOXAPARIN NA (PORCINE) 40 MG/0.4 ML DISP.SYRIN SQ SCH (09:14)
[2023-03-27] MEDS: CYCLOBENZAPRINE HCL 10 MG TABLET (FP) PO SCH (09:15)
[2023-03-27] MEDS: ASPIRIN COATED 81 MG TABLET.EC PO SCH (09:15)
[2023-03-27] MEDS: LOSARTAN POTASSIUM 50 MG TABLET PO SCH (09:15)
[2023-03-27] MEDS: PANTOPRAZOLE 40 MG TABLET PO SCH (09:15)
[2023-03-27] MEDS: CLOPIDOGREL BISULFATE 75 MG TABLET (FP) PO SCH (09:16)
[2023-03-27] MEDS: LIDOCAINE 5% TOPICAL PATCH TP SCH (09:16)
[2023-03-27] MEDS: FLUoxetine HCL 10 MG CAPSULE PO SCH (09:17)
[2023-03-27] MEDS ORDERED: NICOTINE 7 MG/24 HOURS TOPICAL PATCH TD SCH (11:00)
[2023-03-27 15:05] VITALS: BP 144/85; PULSE 88; TEMP 99.1
== END 2023-03-27 14:47 ==
LOC: JER 22:35 → JERBED 03-20 01:09 → J4S 03-20 23:12
PROVIDERS: ADMIT Internal Medicine; ATTEND Internal Medicine
PROC: 3E023GC Introduction of Other Therapeutic Substance into Muscle, Percutaneous Approach (ICD-10-PCS; principal; 2023-03-20)
PROC: 3E0337Z Introduction of Electrolytic and Water Balance Substance into Peripheral Vein, Percutaneous Approach (ICD-10-PCS; 2023-03-20)
PROC: 3E033GC Introduction of Other Therapeutic Substance into Peripheral Vein, Percutaneous Approach (ICD-10-PCS; 2023-03-20)
DX: I10 Essential (primary) hypertension (principal); I69.854 Hemiplegia and hemiparesis following other cerebrovascular disease affecting left non-dominant side; J40 Bronchitis, not specified as acute or chronic; M54.9 Dorsalgia, unspecified; R47.1 Dysarthria and anarthria; R26.2 Difficulty in walking, not elsewhere classified; E78.5 Hyperlipidemia, unspecified; F32.A Depression, unspecified; Z29.8 Encounter for other specified prophylactic measures; R51.9 Headache, unspecified; F17.200 Nicotine dependence, unspecified, uncomplicated
CPT/HCPCS: 36415; 70450-TC; 70496-TC; 70498-TC; 71045-TC-FY; 80048; 80053; 80061; 82962; 83036; 83690; 83735; 84100; 84484; 85025; 85027; 85610; 85730; 93005; 93010; 93306-TC; 93970-TC; 96361; 96372; 96374; 97116-GP; 97161-GP; 99285-25; G0378

== ENCOUNTER 2023-08-03 13:06 | Observation (INO) | payer OTHER ==
[2023-08-03 13:42] VITALS: BMI 29.6
[2023-08-03 14:48] LABS: BASO % 1.2 % (0-2.0); EOS % 3.3 % (0-4.5); HEMATOCRIT 24.8 % (32.4-45.2); HEMOGLOBIN 7.7 GM/dL (10.7-15.3); LYMPH % 43.4 % (8-40); MCH 27.1 pg (25.7-33.7); MCHC 30.9 g/dl (32.0-36.0); MEAN CELL VOLUME 87.5 fl (80-96); MEAN PLT VOLUME 7.3 fl (7.5-11.1); MONO % 6.7 % (3.8-10.2); NEUT % 45.4 % (42.8-82.8); PLATELET COUNT 404 10^3/uL (134-434); RBC 2.84 M/mm3 (3.60-5.2); RDW 16.2 % (11.6-15.6); WHITE BLOOD COUNT 6.9 K/mm3 (4.0-10.0)
[2023-08-03 14:54] LABS: INR 1.81 (0.83-1.09); PROTHROMBIN TIME (PATIENT) 20.9 SEC (9.7-13.0)
[2023-08-03 14:57] LABS: ACTIVATED PTT 35.8 SECONDS (25.2-36.5)
[2023-08-03 15:12] LABS: CHLORIDE 109 mmol/L (98-107); POTASSIUM 3.8 mmol/L (3.5-5.1); SODIUM 139 mmol/L (136-145)
[2023-08-03 15:15] LABS: CALCIUM 8.8 mg/dL (8.5-10.1)
[2023-08-03 15:16] LABS: ALBUMIN 3.3 g/dl (3.4-5.0); ANION GAP 3 mmol/L (4-13); CO2 27 mmol/L (21-32)
[2023-08-03 15:17] LABS: GLUCOSE,RANDOM 90 mg/dL (74-106)
[2023-08-03 15:18] LABS: SGOT/AST 18 U/L (15-37); SGPT/ALT 16 U/L (13-61)
[2023-08-03 15:20] LABS: CHOLESTEROL 118 mg/dL (50-200)
[2023-08-03 15:21] LABS: BILIRUBIN,TOTAL 0.2 mg/dL (0.2-1); LDL CHOLESTEROL (ONLY SJRH) 50 mg/dL (5-100); TOT PROT 7.6 g/dl (6.4-8.2)
[2023-08-03 15:23] LABS: ALK PHOS 65 U/L (45-117); HDL CHOLESTEROL 48 mg/dL (40-60)
[2023-08-03 15:43] LABS: URINE APPEARANCE CLEAR; URINE BILIRUBIN NEGATIVE (NEGATIVE); URINE COLOR YELLOW; URINE GLUCOSE (UA) NEGATIVE (NEGATIVE); URINE KETONE TRACE (NEGATIVE); URINE LEUK ESTERASE NEGATIVE (NEGATIVE); URINE NITRITE NEGATIVE (NEGATIVE); URINE PROTEIN TRACE (NEGATIVE); URINE UROBILINOGEN 0.2 mg/dL (0.2-1.0)
[2023-08-03 17:23] LABS: POTASSIUM 3.6 mmol/L (3.5-5.1)
[2023-08-03 17:25] LABS: ALBUMIN 3.2 g/dl (3.4-5.0); BLOOD UREA NITROGEN 15.3 mg/dL (7-18); CALCIUM 8.5 mg/dL (8.5-10.1)
[2023-08-03 17:30] LABS: BILIRUBIN,TOTAL 0.1 mg/dL (0.2-1); TOT PROT 7.2 g/dl (6.4-8.2)
[2023-08-03] MEDS ORDERED: ACETAMINOPHEN 1000 MG/100 ML BAG IVPB ONE (18:40)
[2023-08-03] MEDS ORDERED: ACETAMINOPHEN INJECTION 100 ML IVPB ONE (18:47)
[2023-08-03 21:18] LABS: RETICULOCYTES 1.72 % (0.5-1.5)
[2023-08-03] MEDS ORDERED: ACETAMINOPHEN 1000 MG/100 ML BAG IVPB PRN (22:13)
[2023-08-03] MEDS: morphine CARPU-JECT 2 MG/1 ML DISP.SYRIN IVPUSH ONE ×2 (22:30→23:59)
[2023-08-04] MEDS ORDERED: traZODone HCL 50 MG TABLET (FP) PO SCH ×3 (01:13→22:00)
[2023-08-04] MEDS ORDERED: GABAPENTIN 100 MG CAPSULE PO SCH ×3 (01:14→10:00)
[2023-08-04] MEDS ORDERED: SENNOSIDES 8.6MG TABLET (FP) PO ONE ×2 (05:54→14:10)
[2023-08-04] MEDS ORDERED: SUCRALFATE 1 GM TABLET (FP) ONE ×2 (05:54→14:09)
[2023-08-04] MEDS ORDERED: SENNOSIDES 8.6MG TABLET (FP) PO SCH (06:00)
[2023-08-04] MEDS: SENNOSIDES 8.6MG TABLET (FP) PO SCH ×3 (06:10→21:08)
[2023-08-04] MEDS: SUCRALFATE 1 GM TABLET (FP) PO SCH ×3 (06:10→21:08)
[2023-08-04 06:35] LABS: BASO % 0.4 % (0-2.0); HEMATOCRIT 26.3 % (32.4-45.2); HEMOGLOBIN 8.3 GM/dL (10.7-15.3); LYMPH % 45.8 % (8-40); MCH 27.7 pg (25.7-33.7); MCHC 31.7 g/dl (32.0-36.0); MEAN CELL VOLUME 87.5 fl (80-96); MEAN PLT VOLUME 7.5 fl (7.5-11.1); MONO % 5.9 % (3.8-10.2); NEUT % 42.9 % (42.8-82.8); PLATELET COUNT 414 10^3/uL (134-434); RDW 16.7 % (11.6-15.6); RETICULOCYTES 2.12 % (0.5-1.5); WHITE BLOOD COUNT 6.1 K/mm3 (4.0-10.0)
[2023-08-04 06:48] LABS: POTASSIUM 3.3 mmol/L (3.5-5.1)
[2023-08-04 06:53] LABS: ALBUMIN 3.3 g/dl (3.4-5.0); BLOOD UREA NITROGEN 11.3 mg/dL (7-18); CALCIUM 8.7 mg/dL (8.5-10.1); MAGNESIUM 1.6 mg/dL (1.8-2.4)
[2023-08-04 06:56] LABS: PHOSPHOROUS 3.3 mg/dL (2.5-4.9)
[2023-08-04 06:57] LABS: CREATININE 0.9 mg/dL (0.55-1.3)
[2023-08-04 06:58] LABS: BILIRUBIN,TOTAL 0.2 mg/dL (0.2-1); TOT PROT 7.4 g/dl (6.4-8.2)
[2023-08-04] MEDS ORDERED: PANTOPRAZOLE 40 MG TABLET PO SCH (10:00)
[2023-08-04] MEDS ORDERED: PANTOPRAZOLE 40 MG TABLET PO ONE (10:06)
[2023-08-04] MEDS: FLUoxetine HCL 20 MG CAPSULE PO SCH (10:10)
[2023-08-04] MEDS ORDERED: ACETAMINOPHEN INJECTION 100 ML IVPB ONE (10:11)
[2023-08-04] MEDS ORDERED: POTASSIUM CHLORIDE ORAL LIQUID 20 MEQ/15 ML PO ONE (15:48)
[2023-08-04] MEDS: LIDOCAINE 4% PATCH TP SCH (16:50)
[2023-08-04] MEDS: ATORVASTATIN CA 40 MG TABLET (FP) PO SCH (21:08)
[2023-08-04] MEDS: LIDOCAINE PATCH REMOVAL MC SCH (21:09)
[2023-08-04] MEDS: ENOXAPARIN NA (PORCINE) 40 MG/0.4 ML DISP.SYRIN SQ SCH (21:52)
[2023-08-04] MEDS: GABAPENTIN 100 MG CAPSULE PO SCH (21:53)
[2023-08-04] MEDS: traZODone HCL 50 MG TABLET (FP) PO SCH (21:53)
[2023-08-05] MEDS: SENNOSIDES 8.6MG TABLET (FP) PO SCH ×3 (06:03→21:30)
[2023-08-05] MEDS: SUCRALFATE 1 GM TABLET (FP) PO SCH ×3 (06:03→21:30)
[2023-08-05] MEDS: ENOXAPARIN NA (PORCINE) 40 MG/0.4 ML DISP.SYRIN SQ SCH (09:39)
[2023-08-05] MEDS: LIDOCAINE 4% PATCH TP SCH (09:39)
[2023-08-05] MEDS: FLUoxetine HCL 20 MG CAPSULE PO SCH (09:39)
[2023-08-05] MEDS: ACETAMINOPHEN 325 MG TABLET (FP) PO PRN ×2 (09:40→16:51)
[2023-08-05] MEDS: PANTOPRAZOLE 40 MG TABLET PO SCH ×2 (09:41→21:31)
[2023-08-05] MEDS: GABAPENTIN 100 MG CAPSULE PO SCH ×2 (09:41→21:30)
[2023-08-05] MEDS ORDERED: MAGNESIUM 1GM/D5W - 1 GM/100 ML IVPB IVPB ONE (14:27)
[2023-08-05] MEDS ORDERED: ACETAMINOPHEN 1000 MG/100 ML BAG IVPB ONE (19:38)
[2023-08-05] MEDS: traZODone HCL 50 MG TABLET (FP) PO SCH (21:30)
[2023-08-05] MEDS: ATORVASTATIN CA 40 MG TABLET (FP) PO SCH (21:30)
[2023-08-05] MEDS: LIDOCAINE PATCH REMOVAL MC SCH (21:31)
[2023-08-06] MEDS: SUCRALFATE 1 GM TABLET (FP) PO SCH ×2 (06:19→13:30)
[2023-08-06] MEDS: SENNOSIDES 8.6MG TABLET (FP) PO SCH ×2 (06:20→13:28)
[2023-08-06 07:43] LABS: HEMATOCRIT 25.7 % (32.4-45.2); HEMOGLOBIN 8.2 GM/dL (10.7-15.3); MCH 27.3 pg (25.7-33.7); MCHC 31.9 g/dl (32.0-36.0); MEAN CELL VOLUME 85.6 fl (80-96); MEAN PLT VOLUME 7.7 fl (7.5-11.1); PLATELET COUNT 458 10^3/uL (134-434); RDW 16.8 % (11.6-15.6); WHITE BLOOD COUNT 7.7 K/mm3 (4.0-10.0)
[2023-08-06 08:00] LABS: POTASSIUM 3.7 mmol/L (3.5-5.1)
[2023-08-06 08:04] LABS: ALBUMIN 3.2 g/dl (3.4-5.0); BLOOD UREA NITROGEN 11.6 mg/dL (7-18); MAGNESIUM 2.1 mg/dL (1.8-2.4)
[2023-08-06 08:07] LABS: CREATININE 0.9 mg/dL (0.55-1.3); PHOSPHOROUS 3.7 mg/dL (2.5-4.9)
[2023-08-06 08:11] LABS: BILIRUBIN,TOTAL 0.1 mg/dL (0.2-1); TOT PROT 7.2 g/dl (6.4-8.2)
[2023-08-06] MEDS: FLUoxetine HCL 20 MG CAPSULE PO SCH (09:37)
[2023-08-06] MEDS: ENOXAPARIN NA (PORCINE) 40 MG/0.4 ML DISP.SYRIN SQ SCH (09:37)
[2023-08-06] MEDS: LIDOCAINE 4% PATCH TP SCH (09:38)
[2023-08-06] MEDS: GABAPENTIN 100 MG CAPSULE PO SCH (09:38)
[2023-08-06] MEDS: PANTOPRAZOLE 40 MG TABLET PO SCH (09:38)
[2023-08-06 10:01] VITALS: RESP 20
[2023-08-06] MEDS ORDERED: ACETAMINOPHEN 1000 MG/100 ML BAG IVPB ONE (11:25)
[2023-08-06 14:32] VITALS: BP 135/81; PULSE 70; TEMP 99
[2023-08-06] MEDS: ACETAMINOPHEN 325 MG TABLET (FP) PO PRN (16:33)
== END 2023-08-06 19:00 | disposition home health service (06) ==
LOC: JER 13:06 → JERBED 14:03 → J4W 08-04 15:12
PROVIDERS: ADMIT Internal Medicine; ATTEND Internal Medicine
PROC: 3E023GC Introduction of Other Therapeutic Substance into Muscle, Percutaneous Approach (ICD-10-PCS; principal; 2023-08-03)
PROC: 3E033GC Introduction of Other Therapeutic Substance into Peripheral Vein, Percutaneous Approach (ICD-10-PCS; 2023-08-03)
PROC: 3E033NZ Introduction of Analgesics, Hypnotics, Sedatives into Peripheral Vein, Percutaneous Approach (ICD-10-PCS; 2023-08-03)
DX: I69.854 Hemiplegia and hemiparesis following other cerebrovascular disease affecting left non-dominant side (principal); I10 Essential (primary) hypertension; E78.5 Hyperlipidemia, unspecified; K92.2 Gastrointestinal hemorrhage, unspecified; D64.89 Other specified anemias; M79.605 Pain in left leg; F17.210 Nicotine dependence, cigarettes, uncomplicated
CPT/HCPCS: 0241U-QW; 36415; 70450-TC; 70496-TC; 70498-TC; 70551-TC; 74176-TC; 80053; 80061; 81003; 82272; 82550; 82728; 82962; 83036; 83540; 83550; 83735; 84100; 84484; 85025; 85027; 85045; 85379; 85610; 85730; 86850; 86900; 86901; 93005; 93010; 93971-TC; 96365; 96372; 96375; 96376; 97116-GP; 97162-GP; 99285-25; G0378

== ENCOUNTER 2023-09-05 16:47 | Inpatient (IN) | payer OTHER ==
[2023-09-05] MEDS ORDERED: SODIUM CHLORIDE 1,000 ML IV STA (17:24)
[2023-09-05 18:13] LABS: BASO % 1.8 % (0-2.0); EOS % 3.4 % (0-4.5); HEMATOCRIT 22.1 % (32.4-45.2); INR 1.58 (0.83-1.09); LYMPH % 35.3 % (8-40); MCH 27.3 pg (25.7-33.7); MCHC 31.8 g/dl (32.0-36.0); MEAN CELL VOLUME 85.7 fl (80-96); MEAN PLT VOLUME 6.8 fl (7.5-11.1); MONO % 6.3 % (3.8-10.2); NEUT % 53.2 % (42.8-82.8); PLATELET COUNT 550 10^3/uL (134-434); PROTHROMBIN TIME (PATIENT) 18.3 SEC (9.7-13.0); RBC 2.58 M/mm3 (3.60-5.2); RDW 16.8 % (11.6-15.6); RETICULOCYTES 3.03 % (0.5-1.5); WHITE BLOOD COUNT 7.1 K/mm3 (4.0-10.0)
[2023-09-05 18:15] LABS: ACTIVATED PTT 35.6 SECONDS (25.2-36.5)
[2023-09-05 18:33] LABS: CHLORIDE 105 mmol/L (98-107); SODIUM 139 mmol/L (136-145)
[2023-09-05 18:35] LABS: ALBUMIN 3.3 g/dl (3.4-5.0)
[2023-09-05 18:36] LABS: ANION GAP 3 mmol/L (4-13); BLOOD UREA NITROGEN 12.6 mg/dL (7-18); CALCIUM 9.2 mg/dL (8.5-10.1); CO2 30 mmol/L (21-32); GLUCOSE,RANDOM 91 mg/dL (74-106)
[2023-09-05 18:37] LABS: SGPT/ALT 17 U/L (13-61)
[2023-09-05 18:38] LABS: CREATININE 0.9 mg/dL (0.55-1.3); SGOT/AST 13 U/L (15-37)
[2023-09-05 18:39] LABS: BILIRUBIN,TOTAL < 0.1 mg/dL (0.2-1); LDH 154 U/L (84-246); TOT PROT 7.5 g/dl (6.4-8.2)
[2023-09-05 18:40] LABS: ALK PHOS 70 U/L (45-117)
[2023-09-05 22:10] LABS: IRON SERUM 23 ug/dL (50-175); TOTAL IRON BINDING CAPACITY 331 ug/dL (250-450)
[2023-09-05] MEDS ORDERED: SODIUM CHLORIDE 1,000 ML IV SCH (23:45)
[2023-09-06 00:46] VITALS: BMI 32.3
[2023-09-06 08:17] LABS: BASO % 1.6 % (0-2.0); HEMOGLOBIN 8.2 GM/dL (10.7-15.3); MCH 27.5 pg (25.7-33.7); MCHC 32.9 g/dl (32.0-36.0); MEAN CELL VOLUME 83.6 fl (80-96); MONO % 5.9 % (3.8-10.2); NEUT % 57.5 % (42.8-82.8); PLATELET COUNT 575 10^3/uL (134-434); RBC 2.99 M/mm3 (3.60-5.2); RDW 16.5 % (11.6-15.6); WHITE BLOOD COUNT 7.4 K/mm3 (4.0-10.0)
[2023-09-06 08:25] LABS: POTASSIUM 4.1 mmol/L (3.5-5.1)
[2023-09-06 08:31] LABS: CALCIUM 9.1 mg/dL (8.5-10.1)
[2023-09-06 08:32] LABS: ALBUMIN 3.1 g/dl (3.4-5.0); BLOOD UREA NITROGEN 10.5 mg/dL (7-18)
[2023-09-06 08:35] LABS: CREATININE 0.8 mg/dL (0.55-1.3); PHOSPHOROUS 3.8 mg/dL (2.5-4.9)
[2023-09-06 08:36] LABS: BILIRUBIN,TOTAL 0.2 mg/dL (0.2-1); TOT PROT 7.3 g/dl (6.4-8.2)
[2023-09-06] MEDS ORDERED: FLUoxetine HCL 10 MG CAPSULE PO SCH (10:00)
[2023-09-06] MEDS: LOSARTAN POTASSIUM 50 MG TABLET PO SCH (10:33)
[2023-09-06] MEDS: GABAPENTIN 100 MG CAPSULE PO SCH ×2 (10:33→21:36)
[2023-09-06] MEDS: metoPROLOL SUCCINATE 25 MG TAB.SR.24H (FP) PO SCH (10:33)
[2023-09-06 12:30] LABS: BASO % 1.4 % (0-2.0); EOS % 4.1 % (0-4.5); HEMATOCRIT 26.9 % (32.4-45.2); HEMOGLOBIN 8.8 GM/dL (10.7-15.3); MCH 27.5 pg (25.7-33.7); MCHC 32.8 g/dl (32.0-36.0); MEAN CELL VOLUME 83.8 fl (80-96); MEAN PLT VOLUME 6.5 fl (7.5-11.1); MONO % 4.6 % (3.8-10.2); NEUT % 61.9 % (42.8-82.8); PLATELET COUNT 602 10^3/uL (134-434); RBC 3.21 M/mm3 (3.60-5.2); RDW 16.1 % (11.6-15.6)
[2023-09-06] MEDS: FLUoxetine HCL 20 MG CAPSULE PO SCH (15:00)
[2023-09-06] MEDS: CYCLOBENZAPRINE HCL 10 MG TABLET (FP) PO SCH (21:36)
[2023-09-06] MEDS: ATORVASTATIN CA 40 MG TABLET (FP) PO SCH (21:36)
[2023-09-06] MEDS: PANTOPRAZOLE SODIUM 40 MG VIAL IVPUSH SCH (21:37)
[2023-09-06] MEDS ORDERED: APIXABAN 5 MG TABLET PO SCH (22:00)
[2023-09-07 08:27] LABS: ALBUMIN 3.3 g/dl (3.4-5.0); CALCIUM 9.4 mg/dL (8.5-10.1)
[2023-09-07 08:31] LABS: CREATININE 0.9 mg/dL (0.55-1.3)
[2023-09-07 08:32] LABS: TOT PROT 7.6 g/dl (6.4-8.2)
[2023-09-07 08:36] LABS: BASO % 1.3 % (0-2.0); EOS % 4.4 % (0-4.5); HEMATOCRIT 27.2 % (32.4-45.2); HEMOGLOBIN 8.8 GM/dL (10.7-15.3); LYMPH % 35.7 % (8-40); MCH 27.3 pg (25.7-33.7); MCHC 32.3 g/dl (32.0-36.0); MEAN CELL VOLUME 84.3 fl (80-96); MONO % 6.3 % (3.8-10.2); NEUT % 52.3 % (42.8-82.8); PLATELET COUNT 616 10^3/uL (134-434); RBC 3.23 M/mm3 (3.60-5.2); RDW 16.3 % (11.6-15.6); WHITE BLOOD COUNT 7.2 K/mm3 (4.0-10.0)
[2023-09-07 08:37] LABS: BILIRUBIN,TOTAL 0.2 mg/dL (0.2-1)
[2023-09-07] MEDS: metoPROLOL SUCCINATE 25 MG TAB.SR.24H (FP) PO SCH (10:16)
[2023-09-07] MEDS: FLUoxetine HCL 20 MG CAPSULE PO SCH (10:16)
[2023-09-07] MEDS: LOSARTAN POTASSIUM 50 MG TABLET PO SCH (10:16)
[2023-09-07] MEDS: GABAPENTIN 100 MG CAPSULE PO SCH ×2 (10:16→22:52)
[2023-09-07] MEDS: PANTOPRAZOLE SODIUM 40 MG VIAL IVPUSH SCH (10:16)
[2023-09-07] MEDS: ENOXAPARIN NA (PORCINE) 40 MG/0.4 ML DISP.SYRIN SQ SCH (10:16)
[2023-09-07] MEDS: ACETAMINOPHEN 1000 MG/100 ML BAG IVPB PRN ×2 (12:56→20:26)
[2023-09-07] MEDS: CYCLOBENZAPRINE HCL 10 MG TABLET (FP) PO SCH (22:51)
[2023-09-07] MEDS: ATORVASTATIN CA 40 MG TABLET (FP) PO SCH (22:52)
[2023-09-08] MEDS ORDERED: IRON SUCROSE INJECTION 200 MG in SODIUM CHLORIDE 90 ML IVPB ONE (08:54)
[2023-09-08 09:58] LABS: BASO % 1.1 % (0-2.0); EOS % 4.4 % (0-4.5); HEMOGLOBIN 8.7 GM/dL (10.7-15.3); LYMPH % 32.8 % (8-40); MCH 26.7 pg (25.7-33.7); MCHC 31.3 g/dl (32.0-36.0); MEAN CELL VOLUME 85.3 fl (80-96); MEAN PLT VOLUME 6.7 fl (7.5-11.1); NEUT % 57.7 % (42.8-82.8); PLATELET COUNT 605 10^3/uL (134-434); RBC 3.28 M/mm3 (3.60-5.2); RDW 16.2 % (11.6-15.6); WHITE BLOOD COUNT 6.6 K/mm3 (4.0-10.0)
[2023-09-08] MEDS: GABAPENTIN 100 MG CAPSULE PO SCH ×2 (10:20→22:31)
[2023-09-08] MEDS: PANTOPRAZOLE SODIUM 40 MG VIAL IVPUSH SCH (10:20)
[2023-09-08] MEDS: LOSARTAN POTASSIUM 50 MG TABLET PO SCH (10:20)
[2023-09-08] MEDS: ENOXAPARIN NA (PORCINE) 40 MG/0.4 ML DISP.SYRIN SQ SCH (10:20)
[2023-09-08] MEDS: FLUoxetine HCL 20 MG CAPSULE PO SCH (10:21)
[2023-09-08 10:22] LABS: ALBUMIN 3.2 g/dl (3.4-5.0); BLOOD UREA NITROGEN 17.3 mg/dL (7-18); CALCIUM 9.5 mg/dL (8.5-10.1)
[2023-09-08 10:27] LABS: TOT PROT 7.3 g/dl (6.4-8.2)
[2023-09-08 10:33] LABS: BILIRUBIN,TOTAL 0.2 mg/dL (0.2-1)
[2023-09-08] MEDS: metoPROLOL SUCCINATE 25 MG TAB.SR.24H (FP) PO SCH (10:45)
[2023-09-08] MEDS: CYCLOBENZAPRINE HCL 10 MG TABLET (FP) PO SCH (22:31)
[2023-09-08] MEDS: ATORVASTATIN CA 40 MG TABLET (FP) PO SCH (22:31)
[2023-09-09 09:35] LABS: BASO % 1.5 % (0-2.0); EOS % 4.9 % (0-4.5); HEMATOCRIT 26.1 % (32.4-45.2); HEMOGLOBIN 8.5 GM/dL (10.7-15.3); LYMPH % 31.6 % (8-40); MCH 27.6 pg (25.7-33.7); MCHC 32.6 g/dl (32.0-36.0); MEAN CELL VOLUME 84.7 fl (80-96); MEAN PLT VOLUME 6.9 fl (7.5-11.1); MONO % 6.2 % (3.8-10.2); NEUT % 55.8 % (42.8-82.8); PLATELET COUNT 596 10^3/uL (134-434); RBC 3.08 M/mm3 (3.60-5.2); RDW 15.9 % (11.6-15.6); WHITE BLOOD COUNT 7.2 K/mm3 (4.0-10.0)
[2023-09-09] MEDS: PANTOPRAZOLE SODIUM 40 MG VIAL IVPUSH SCH (09:49)
[2023-09-09] MEDS: FLUoxetine HCL 20 MG CAPSULE PO SCH (09:49)
[2023-09-09] MEDS: LOSARTAN POTASSIUM 50 MG TABLET PO SCH (09:49)
[2023-09-09] MEDS: ENOXAPARIN NA (PORCINE) 40 MG/0.4 ML DISP.SYRIN SQ SCH (09:49)
[2023-09-09] MEDS: GABAPENTIN 100 MG CAPSULE PO SCH ×2 (09:50→21:29)
[2023-09-09] MEDS: metoPROLOL SUCCINATE 25 MG TAB.SR.24H (FP) PO SCH (09:50)
[2023-09-09 09:58] LABS: CHLORIDE 107 mmol/L (98-107); POTASSIUM 3.9 mmol/L (3.5-5.1); SODIUM 140 mmol/L (136-145)
[2023-09-09 10:04] LABS: CALCIUM 9.9 mg/dL (8.5-10.1)
[2023-09-09 10:05] LABS: ALBUMIN 3.3 g/dl (3.4-5.0); ANION GAP 5 mmol/L (4-13); BLOOD UREA NITROGEN 16.2 mg/dL (7-18); CO2 27 mmol/L (21-32); GLUCOSE,RANDOM 103 mg/dL (74-106)
[2023-09-09 10:08] LABS: SGOT/AST 12 U/L (15-37); SGPT/ALT 16 U/L (13-61)
[2023-09-09 10:09] LABS: BILIRUBIN,TOTAL < 0.1 mg/dL (0.2-1); TOT PROT 7.6 g/dl (6.4-8.2)
[2023-09-09 10:10] LABS: ALK PHOS 66 U/L (45-117)
[2023-09-09 16:34] VITALS: RESP 18
[2023-09-09] MEDS ORDERED: ACETAMINOPHEN 1000 MG/100 ML BAG IVPB PRN (17:25)
[2023-09-09] MEDS ORDERED: ACETAMINOPHEN 325 MG TABLET (FP) PO PRN (18:25)
[2023-09-09] MEDS: LIDOCAINE 4% PATCH TP SCH (18:45)
[2023-09-09] MEDS: ENOXAPARIN NA (PORCINE) 100 MG/1 ML DISP.SYRIN SQ SCH (21:29)
[2023-09-09] MEDS: CYCLOBENZAPRINE HCL 10 MG TABLET (FP) PO SCH (21:29)
[2023-09-09] MEDS: ATORVASTATIN CA 40 MG TABLET (FP) PO SCH (21:30)
[2023-09-09] MEDS: LIDOCAINE PATCH REMOVAL MC SCH (22:12)
[2023-09-10] MEDS: LIDOCAINE 4% PATCH TP SCH (09:43)
[2023-09-10] MEDS: GABAPENTIN 100 MG CAPSULE PO SCH ×2 (09:44→21:08)
[2023-09-10] MEDS: metoPROLOL SUCCINATE 25 MG TAB.SR.24H (FP) PO SCH (09:44)
[2023-09-10] MEDS: PANTOPRAZOLE 40 MG TABLET PO SCH (09:44)
[2023-09-10] MEDS: LOSARTAN POTASSIUM 50 MG TABLET PO SCH (09:44)
[2023-09-10] MEDS: ENOXAPARIN NA (PORCINE) 100 MG/1 ML DISP.SYRIN SQ SCH (09:44)
[2023-09-10] MEDS: FLUoxetine HCL 20 MG CAPSULE PO SCH (09:45)
[2023-09-10 09:52] LABS: HEMATOCRIT 26.6 % (32.4-45.2); HEMOGLOBIN 8.7 GM/dL (10.7-15.3); MCH 27.8 pg (25.7-33.7); MCHC 32.7 g/dl (32.0-36.0); MEAN CELL VOLUME 85.1 fl (80-96); PLATELET COUNT 614 10^3/uL (134-434); RBC 3.13 M/mm3 (3.60-5.2); RDW 16.5 % (11.6-15.6); WHITE BLOOD COUNT 8.1 K/mm3 (4.0-10.0)
[2023-09-10 10:16] LABS: POTASSIUM 4.1 mmol/L (3.5-5.1)
[2023-09-10 10:20] LABS: BLOOD UREA NITROGEN 15.3 mg/dL (7-18); CALCIUM 10.1 mg/dL (8.5-10.1)
[2023-09-10 10:24] LABS: CREATININE 0.8 mg/dL (0.55-1.3)
[2023-09-10] MEDS: ATORVASTATIN CA 40 MG TABLET (FP) PO SCH (21:07)
[2023-09-10] MEDS: LIDOCAINE PATCH REMOVAL MC SCH (21:08)
[2023-09-10] MEDS: CYCLOBENZAPRINE HCL 10 MG TABLET (FP) PO SCH (21:08)
[2023-09-11] MEDS: LIDOCAINE 4% PATCH TP SCH (09:01)
[2023-09-11] MEDS: FLUoxetine HCL 20 MG CAPSULE PO SCH (09:02)
[2023-09-11] MEDS: LOSARTAN POTASSIUM 50 MG TABLET PO SCH (09:02)
[2023-09-11] MEDS: metoPROLOL SUCCINATE 25 MG TAB.SR.24H (FP) PO SCH (09:02)
[2023-09-11] MEDS: ENOXAPARIN NA (PORCINE) 100 MG/1 ML DISP.SYRIN SQ SCH (09:02)
[2023-09-11] MEDS: GABAPENTIN 100 MG CAPSULE PO SCH ×2 (09:02→22:48)
[2023-09-11] MEDS: PANTOPRAZOLE 40 MG TABLET PO SCH (09:02)
[2023-09-11 09:31] LABS: HEMATOCRIT 26.3 % (32.4-45.2); HEMOGLOBIN 8.5 GM/dL (10.7-15.3); MCH 27.5 pg (25.7-33.7); MCHC 32.4 g/dl (32.0-36.0); MEAN CELL VOLUME 84.9 fl (80-96); MEAN PLT VOLUME 6.8 fl (7.5-11.1); PLATELET COUNT 596 10^3/uL (134-434); RDW 16.4 % (11.6-15.6); WHITE BLOOD COUNT 7.5 K/mm3 (4.0-10.0)
[2023-09-11 10:26] LABS: POTASSIUM 3.9 mmol/L (3.5-5.1)
[2023-09-11 10:32] LABS: BLOOD UREA NITROGEN 13.2 mg/dL (7-18); CALCIUM 9.5 mg/dL (8.5-10.1)
[2023-09-11 10:35] LABS: CREATININE 0.8 mg/dL (0.55-1.3)
[2023-09-11] MEDS ORDERED: BISACODYL 10 MG SUPP.RECT PR ONE (14:45)
[2023-09-11] MEDS: APIXABAN 5 MG TABLET PO SCH (22:48)
[2023-09-11] MEDS: CYCLOBENZAPRINE HCL 10 MG TABLET (FP) PO SCH (22:48)
[2023-09-11] MEDS: LIDOCAINE PATCH REMOVAL MC SCH (22:49)
[2023-09-11] MEDS: ATORVASTATIN CA 40 MG TABLET (FP) PO SCH (22:49)
[2023-09-12] MEDS: LOSARTAN POTASSIUM 50 MG TABLET PO SCH (10:23)
[2023-09-12] MEDS: PANTOPRAZOLE 40 MG TABLET PO SCH (10:23)
[2023-09-12] MEDS: APIXABAN 5 MG TABLET PO SCH (10:23)
[2023-09-12] MEDS: metoPROLOL SUCCINATE 25 MG TAB.SR.24H (FP) PO SCH (10:23)
[2023-09-12] MEDS: GABAPENTIN 100 MG CAPSULE PO SCH (10:23)
[2023-09-12] MEDS: LIDOCAINE 4% PATCH TP SCH (10:23)
[2023-09-12] MEDS: FLUoxetine HCL 20 MG CAPSULE PO SCH (10:24)
[2023-09-12] MEDS ORDERED: POLYETHYLENE GLYCOL (HEALTHYLAX) 3350 17 GM PACKET PO SCH (12:30)
[2023-09-12 13:11] LABS: BASO % 1.2 % (0-2.0); EOS % 2.9 % (0-4.5); HEMATOCRIT 27.6 % (32.4-45.2); HEMOGLOBIN 8.9 GM/dL (10.7-15.3); LYMPH % 29.7 % (8-40); MCH 27.1 pg (25.7-33.7); MCHC 32.4 g/dl (32.0-36.0); MEAN CELL VOLUME 83.6 fl (80-96); MEAN PLT VOLUME 6.9 fl (7.5-11.1); MONO % 6.3 % (3.8-10.2); NEUT % 59.9 % (42.8-82.8); PLATELET COUNT 574 10^3/uL (134-434); RDW 16.3 % (11.6-15.6); WHITE BLOOD COUNT 7.7 K/mm3 (4.0-10.0)
[2023-09-12 14:27] VITALS: BP 132/87; PULSE 79; TEMP 98.9
[2023-09-12] MEDS ORDERED: traZODone HCL 100 MG TABLET (FP) PO SCH (22:00)
== END 2023-09-12 17:41 | disposition home or self-care (01) | DRG 813 ==
LOC: JER 16:47 → JERBED 18:14 → J7W 21:21 → J5S 09-07 11:50
PROVIDERS: ADMIT Internal Medicine; ATTEND Internal Medicine
PROC: 30233N1 Transfusion of Nonautologous Red Blood Cells into Peripheral Vein, Percutaneous Approach (ICD-10-PCS; principal; 2023-09-05)
DX: D68.32 Hemorrhagic disorder due to extrinsic circulating anticoagulants (principal); K92.2 Gastrointestinal hemorrhage, unspecified; D62 Acute posthemorrhagic anemia; I69.354 Hemiplegia and hemiparesis following cerebral infarction affecting left non-dominant side; I82.622 Acute embolism and thrombosis of deep veins of left upper extremity; D50.9 Iron deficiency anemia, unspecified; K55.20 Angiodysplasia of colon without hemorrhage; D47.3 Essential (hemorrhagic) thrombocythemia; I10 Essential (primary) hypertension; E78.5 Hyperlipidemia, unspecified; F20.9 Schizophrenia, unspecified; F32.A Depression, unspecified
CPT/HCPCS: 36415; 36430; 80048; 80053; 82272; 82607; 82728; 82746; 83010; 83540; 83550; 83615; 83735; 84100; 84439; 84443; 85025; 85027; 85045; 85610; 85730; 86850; 86900; 86901; 86922; 93005; 93010; 93970-TC; 93971; 97116-GP; 97162-GP; 99285-25; J1756; P9058

== ENCOUNTER 2023-10-15 18:35 | Observation (INO) | payer OTHER ==
[2023-10-15 19:00] VITALS: BMI 32.6
[2023-10-15] MEDS ORDERED: LACTATED RINGERS SOLUTION 1000 ML INFUS.BAG IV ONE (20:15)
[2023-10-15 21:21] LABS: BASO % 1.3 % (0-2.0); EOS % 4.3 % (0-4.5); HEMATOCRIT 25.8 % (32.4-45.2); HEMOGLOBIN 8.1 GM/dL (10.7-15.3); MCHC 31.2 g/dl (32.0-36.0); MEAN CELL VOLUME 86.5 fl (80-96); MEAN PLT VOLUME 7.1 fl (7.5-11.1); MONO % 6.3 % (3.8-10.2); NEUT % 47.1 % (42.8-82.8); PLATELET COUNT 384 10^3/uL (134-434); RBC 2.98 M/mm3 (3.60-5.2); RDW 16.9 % (11.6-15.6); WHITE BLOOD COUNT 7.5 K/mm3 (4.0-10.0)
[2023-10-15 21:27] LABS: INR 1.08 (0.83-1.09); PROTHROMBIN TIME (PATIENT) 12.5 SEC (9.7-13.0)
[2023-10-15 21:30] LABS: ACTIVATED PTT 31.6 SECONDS (25.2-36.5)
[2023-10-15 21:50] LABS: CHLORIDE 112 mmol/L (98-107); POTASSIUM 3.7 mmol/L (3.5-5.1); SODIUM 142 mmol/L (136-145)
[2023-10-15 21:52] LABS: ALBUMIN 2.8 g/dl (3.4-5.0); ANION GAP 3 mmol/L (4-13); CALCIUM 8.2 mg/dL (8.5-10.1); CO2 27 mmol/L (21-32)
[2023-10-15 21:53] LABS: BLOOD UREA NITROGEN 13.7 mg/dL (7-18); GLUCOSE,RANDOM 121 mg/dL (74-106); MAGNESIUM 1.9 mg/dL (1.8-2.4)
[2023-10-15 21:55] LABS: CREATININE 0.8 mg/dL (0.55-1.3)
[2023-10-15 21:56] LABS: SGOT/AST 11 U/L (15-37); SGPT/ALT 18 U/L (13-61)
[2023-10-15 21:57] LABS: BILIRUBIN,TOTAL < 0.1 mg/dL (0.2-1); TOT PROT 6.1 g/dl (6.4-8.2)
[2023-10-15 21:58] LABS: ALK PHOS 67 U/L (45-117)
[2023-10-15 22:19] LABS: EPI CELLS >36 /uL (0-25.1); HYALINE CASTS 1 /uL (0-3.1); PH,URINE 5.5 (5.0-8.0); URINE APPEARANCE CLOUDY; URINE BACTERIA 174 /uL (0-1359); URINE BILIRUBIN NEGATIVE (NEGATIVE); URINE COLOR YELLOW; URINE GLUCOSE (UA) NEGATIVE (NEGATIVE); URINE KETONE TRACE (NEGATIVE); URINE LEUK ESTERASE 1+ (NEGATIVE); URINE NITRITE NEGATIVE (NEGATIVE); URINE PROTEIN NEGATIVE (NEGATIVE); URINE RBC 20 /uL (0-23.9); URINE WBC 34 /uL (0-25.8)
[2023-10-15 23:16] LABS: N-TERMINAL BNP 54.8 pg/ml (5-125)
[2023-10-16] MEDS ORDERED: ACETAMINOPHEN 325 MG TABLET (FP) PO PRN (01:33)
[2023-10-16 04:25] LABS: METHADONE, UR NEGATIVE (NEGATIVE); PHENCYCLIDINE,URINE NEGATIVE (NEGATIVE); URINE BENZODIAZEPINES NEGATIVE (NEGATIVE)
[2023-10-16 04:26] LABS: OPIATES, URI NEGATIVE (NEGATIVE); URINE AMPHETAMINES NEGATIVE (NEGATIVE); URINE BARBITURATES NEGATIVE (NEGATIVE)
[2023-10-16 04:43] LABS: COCAINE, UR NEGATIVE (NEGATIVE)
[2023-10-16] MEDS ORDERED: PANTOPRAZOLE 40 MG TABLET PO ONE (06:06)
[2023-10-16] MEDS ORDERED: SUCRALFATE 1 GM TABLET (FP) ONE (06:06)
[2023-10-16] MEDS: SUCRALFATE 1 GM TABLET (FP) PO SCH ×2 (06:25→14:00)
[2023-10-16 06:30] LABS: BASO % 2.3 % (0-2.0); EOS % 5.6 % (0-4.5); HEMATOCRIT 27.2 % (32.4-45.2); HEMOGLOBIN 8.5 GM/dL (10.7-15.3); LYMPH % 33.4 % (8-40); MCH 26.8 pg (25.7-33.7); MCHC 31.3 g/dl (32.0-36.0); MEAN CELL VOLUME 85.7 fl (80-96); MEAN PLT VOLUME 7.4 fl (7.5-11.1); MONO % 7.2 % (3.8-10.2); NEUT % 51.5 % (42.8-82.8); PLATELET COUNT 425 10^3/uL (134-434); RBC 3.17 M/mm3 (3.60-5.2); RDW 16.7 % (11.6-15.6); WHITE BLOOD COUNT 7.3 K/mm3 (4.0-10.0)
[2023-10-16] MEDS ORDERED: ACETAMINOPHEN 325 MG TABLET (FP) ONE (06:33)
[2023-10-16 06:45] LABS: POTASSIUM 4.2 mmol/L (3.5-5.1)
[2023-10-16 06:48] LABS: CALCIUM 8.9 mg/dL (8.5-10.1)
[2023-10-16 06:49] LABS: BLOOD UREA NITROGEN 11.7 mg/dL (7-18); MAGNESIUM 2.2 mg/dL (1.8-2.4)
[2023-10-16 06:52] LABS: CREATININE 0.8 mg/dL (0.55-1.3); PHOSPHOROUS 3.8 mg/dL (2.5-4.9)
[2023-10-16 06:53] LABS: BILIRUBIN,TOTAL 0.2 mg/dL (0.2-1); TOT PROT 6.5 g/dl (6.4-8.2)
[2023-10-16] MEDS ORDERED: PANTOPRAZOLE 40 MG TABLET PO SCH (07:00)
[2023-10-16] MEDS ORDERED: APIXABAN 5 MG TABLET PO SCH (10:00)
[2023-10-16] MEDS ORDERED: FLUoxetine HCL 20 MG CAPSULE PO SCH (10:00)
[2023-10-16] MEDS ORDERED: ASPIRIN COATED 81 MG TABLET.EC PO SCH (10:00)
[2023-10-16] MEDS ORDERED: GABAPENTIN 100 MG CAPSULE PO SCH (10:00)
[2023-10-16] MEDS ORDERED: traZODone HCL 50 MG TABLET (FP) PO SCH (10:00)
[2023-10-16 10:01] VITALS: RESP 18
[2023-10-16 15:21] VITALS: BP 148/83; PULSE 73; TEMP 99
[2023-10-16] MEDS ORDERED: SENNOSIDES 8.6MG TABLET (FP) PO SCH (22:00)
[2023-10-16] MEDS ORDERED: ATORVASTATIN CA 40 MG TABLET (FP) PO SCH (22:00)
== END 2023-10-16 15:23 | disposition home or self-care (01) ==
LOC: JER 18:35 → JERBED 23:32
PROVIDERS: ADMIT Internal Medicine
PROC: 3E0337Z Introduction of Electrolytic and Water Balance Substance into Peripheral Vein, Percutaneous Approach (ICD-10-PCS; principal; 2023-10-15)
DX: T50.991A Poisoning by other drugs, medicaments and biological substances, accidental (unintentional), initial encounter (principal); Y92.009 Unspecified place in unspecified non-institutional (private) residence as the place of occurrence of the external cause; I69.90 Unspecified sequelae of unspecified cerebrovascular disease; R42 Dizziness and giddiness; Z79.01 Long term (current) use of anticoagulants; E78.00 Pure hypercholesterolemia, unspecified; Z86.718 Personal history of other venous thrombosis and embolism; K92.2 Gastrointestinal hemorrhage, unspecified; Z87.891 Personal history of nicotine dependence
CPT/HCPCS: 0241U-QW; 36415; 71045-TC-FY; 80053; 80307; 81003; 82272; 83735; 83880; 84100; 84484; 85025; 85610; 85730; 86850; 86900; 86901; 87086; 93005; 93010; 93971-TC; 96360; 99285-25; G0378

== ENCOUNTER 2023-12-23 13:12 | Emergency (ER) | payer OTHER ==
[2023-12-23 14:54] VITALS: BP 120/72; PULSE 81; RESP 18; TEMP 98.7; BMI 33.4
[2023-12-23 15:29] LABS: EOS % 2.9 % (0-4.5); HEMATOCRIT 27.3 % (32.4-45.2); HEMOGLOBIN 8.5 GM/dL (10.7-15.3); LYMPH % 36.1 % (8-40); MCH 25.5 pg (25.7-33.7); MCHC 31.2 g/dl (32.0-36.0); MEAN CELL VOLUME 81.8 fl (80-96); MEAN PLT VOLUME 6.8 fl (7.5-11.1); MONO % 8.6 % (3.8-10.2); NEUT % 51.4 % (42.8-82.8); PLATELET COUNT 489 10^3/uL (134-434); RBC 3.34 M/mm3 (3.60-5.2); RDW 16.7 % (11.6-15.6); WHITE BLOOD COUNT 7.1 K/mm3 (4.0-10.0)
[2023-12-23 15:52] LABS: CHLORIDE 107 mmol/L (98-107); POTASSIUM 4.2 mmol/L (3.5-5.1); SODIUM 139 mmol/L (136-145)
[2023-12-23 15:53] LABS: CALCIUM 9.3 mg/dL (8.5-10.1)
[2023-12-23 15:54] LABS: ALBUMIN 3.2 g/dl (3.4-5.0); ANION GAP 1 mmol/L (4-13); BLOOD UREA NITROGEN 14.7 mg/dL (7-18); CO2 32 mmol/L (21-32); GLUCOSE,RANDOM 103 mg/dL (74-106); MAGNESIUM 2.1 mg/dL (1.8-2.4)
[2023-12-23 15:57] LABS: SGOT/AST 16 U/L (15-37); SGPT/ALT 15 U/L (13-61)
[2023-12-23 15:59] LABS: BILIRUBIN,TOTAL < 0.1 mg/dL (0.2-1); TOT PROT 7.4 g/dl (6.4-8.2)
[2023-12-23 16:00] LABS: ALK PHOS 78 U/L (45-117)
[2023-12-23 16:02] LABS: N-TERMINAL BNP 35.4 pg/ml (5-125)
== END 2023-12-23 20:30 | disposition home or self-care (01) ==
LOC: JER 13:12
DX: R22.42 Localized swelling, mass and lump, left lower limb (principal); R22.32 Localized swelling, mass and lump, left upper limb
CPT/HCPCS: 36415; 70450-TC; 71046-TC-FY; 80053; 83735; 83880; 84484; 85025; 93005; 93010; 93970-TC; 93971; 99285-25